=== PATIENT | female | born 1950 | race Caucasian/White ===

== ENCOUNTER → 2017-12-25 09:48 | Outpatient (CLI) | payer MEDICARE, OTHER, SELFPAY ==
[2017-12-25 12:13] LABS: Anion Gap 9 (5-15); BUN 18 mg/dL (7-18); BUN/Creat Ratio 15.7 RATIO (10-20); Chloride 101 mmol/L (98-107); Cholesterol 203 mg/dL (200); Creatinine, Serum 1.15 mg/dL (0.55-1.02); EST Glomerular Filtration Rate 50 mL/min (>60); Est Glom Filt Rate - Afr Amer 61 mL/min (>60); Glucose 102 mg/dL (74-106); High Density Lipoprotein 47 mg/dL; Potassium 4.5 mmol/L (3.5-5.1); Sodium Level 137 mmol/L (136-145); T4 Free Direct 1.11 ng/dL (0.76-1.46); Thyroid Stim Hormone (TSH) 1.29 uIU/mL (0.358-3.74); Triglycerides 196 mg/dL; Very Low Density Lipoprotein 39 mg/dL (5-40)
== END ==
PROVIDERS: Family Provider Family Medicine; PCP Family Medicine; Visit Provider Family Medicine
DX: I10 Essential (primary) hypertension (principal); E03.9 Hypothyroidism, unspecified
CPT/HCPCS: 36415; 80048; 80061; 84439; 84443

== ENCOUNTER → 2018-05-21 09:00 | Outpatient (CLI) | payer MEDICARE, OTHER, SELFPAY | PROVIDERS: Family Provider Family Medicine; PCP Family Medicine; Visit Provider Family Medicine | DX: Z00.00 Encounter for general adult medical examination without abnormal findings (principal) ==

== ENCOUNTER → 2018-05-31 08:29 | Outpatient (CLI) | payer MEDICARE, OTHER, SELFPAY | PROVIDERS: Family Provider Family Medicine; PCP Family Medicine; Visit Provider Obstetrics & Gynecology | DX: Z12.31 Encounter for screening mammogram for malignant neoplasm of breast (principal) | CPT/HCPCS: 77063; 77067 ==

== ENCOUNTER → 2018-06-12 11:55 | Outpatient (CLI) | payer MEDICARE, OTHER, SELFPAY ==
[2018-06-12 15:43] LABS: Absolute Lymphocyte Count 1.33 X10^3/ul (0.83-4.51); Absolute Neutrophil Count 3.7 X10^3/uL (2.0-7.7); Basophil# 0.03 X10^3/uL; Basophil% 0.5 % (0-1); Eosinophils% 1.8 % (0-5); Hematocrit 34.2 % (37-47); Hemoglobin 11.2 g/dl (12.0-15.0); Lymphocyte # 1.33 X10^3/ul (4.0); Lymphocyte % 23.9 % (19-41); Mean Corp Hgb Conc 32.7 g/gl (32-36); Mean Corpuscular Hgb 33.9 pg (27.0-32.0); Mean Corpuscular Volume 103.6 fL (81-99); Mean Platelet Vol. 11.1 fl (6.2-12.0); Monocyte# 0.43 X10^3/uL; Monocyte% 7.7 % (0-10); Neutrophil # 3.66 X10^3/uL (2.7-7.7); Neutrophil % 65.7 % (47-70); Platelet Count 196 K/mm3 (150-450); RBC Distribution Width CV 12.5 % (11.6-14.6); RBC Distribution Width SD 46.3 fl (35.1-43.9); White Blood Count 5.6 K/mm3 (4.4-11.0)
[2018-06-12 15:44] LABS: POSITIVE COUNT NO; POSITIVE DIFFERENTIAL NO; POSITIVE MORPHOLOGY NO
[2018-06-12 16:13] LABS: ALB/GLOB Ratio 1.2 RATIO (0.9-2.4); AST(SGOT) 20 U/L (15-37); Alanine Aminotransfer ALT/SGPT 29 U/L (13-56); Albumin, Serum 4.1 g/dL (3.2-5.0); Alkaline Phosphatase 72 U/L (45-117); Anion Gap 11 (5-15); BUN 16 mg/dL (7-18); BUN/Creat Ratio 15.5 RATIO (10-20); Calcium,Total 8.9 mg/dL (8.5-10.1); Chloride 105 mmol/L (98-107); Creatinine, Serum 1.03 mg/dL (0.55-1.02); EST Glomerular Filtration Rate 57 mL/min (>60); Est Glom Filt Rate - Afr Amer 69 mL/min (>60); Globulin 3.3 g/dL (2.2-4.2); Glucose 83 mg/dL (74-106); Potassium 4.5 mmol/L (3.5-5.1); Protein, Total 7.4 g/dL (6.4-8.2); Sodium Level 141 mmol/L (136-145); Thyroid Stim Hormone (TSH) 1.66 uIU/mL (0.358-3.74)
== END ==
PROVIDERS: Family Provider Family Medicine; PCP Family Medicine; Visit Provider Nurse Practitioner Family
DX: Z00.00 Encounter for general adult medical examination without abnormal findings (principal); I10 Essential (primary) hypertension; E03.9 Hypothyroidism, unspecified
CPT/HCPCS: 36415; 80053; 84443; 85025

== ENCOUNTER → 2018-12-19 09:52 | Outpatient (CLI) | payer MEDICARE, OTHER, SELFPAY ==
[2018-12-19 13:09] LABS: Vitamin D,25 Hydroxy 26.2 ng/mL (29.95-100.01)
[2018-12-19 13:33] LABS: Anion Gap 8 (5-15); BUN 20 mg/dL (7-18); BUN/Creat Ratio 17.1 RATIO (10-20); Chloride 101 mmol/L (98-107); Cholesterol 220 mg/dL (200); Creatinine, Serum 1.17 mg/dL (0.55-1.02); EST Glomerular Filtration Rate 49 mL/min (>60); Est Glom Filt Rate - Afr Amer 59 mL/min (>60); Glucose 106 mg/dL (74-106); High Density Lipoprotein 48 mg/dL; Potassium 4.5 mmol/L (3.5-5.1); Sodium Level 134 mmol/L (136-145); T4 Free Direct 1.02 ng/dL (0.76-1.46); Thyroid Stim Hormone (TSH) 1.88 uIU/mL (0.358-3.74); Triglycerides 286 mg/dL; Very Low Density Lipoprotein 57 mg/dL (5-40)
== END ==
PROVIDERS: Family Provider Family Medicine; PCP Family Medicine; Referring Provider Family Medicine; Visit Provider Family Medicine
DX: I10 Essential (primary) hypertension (principal); E03.9 Hypothyroidism, unspecified; M85.80 Other specified disorders of bone density and structure, unspecified site
CPT/HCPCS: 36415; 80048; 80061; 82306; 84439; 84443

== ENCOUNTER 2019-02-26 19:54 | Inpatient (IN) | payer MEDICARE, OTHER, SELFPAY ==
[2019-02-26 19:55] VITALS: BP 159/81; PULSE 74; RESP 18; TEMP 36.6; O2SAT 98; BMI 28.9
--- NOTE | 2019-02-26 20:37 | EKG12_ITS ---
Test Reason : DIZZINESS Blood Pressure : / mmHG Vent. Rate : 070 BPM Atrial Rate : 070 BPM P-R Int : 138 ms QRS Dur : 084 ms QT Int : 402 ms P-R-T Axes : 032 068 038 degrees QTc Int : 434 ms Normal sinus rhythm Normal ECG Confirmed by AICHA PEREZ ([id number]), supervising editor news reel ALESHA GIL ([id number]) on 03/03/2019 2:17:38 PM Referred By: BARRETT KULKARNI Confirmed By:AICHA PEREZ
--- NOTE | 2019-02-26 20:37 | CT_ITS ---
STUDY: CT BRAIN WITHOUT CONTRAST REASON FOR EXAM: Female, 69 years old. Dizziness RADIATION DOSAGE (If Supplied By Facility): DLP = ( 745.49 ) mGycm TECHNIQUE: Transaxial CT imaging of the brain was performed without administration of intravenous contrast material. Individualized dose optimization techniques were used for this CT. COMPARISON: None. FINDINGS: There is no acute bleed or infarct. There are chronic ischemic and atrophic changes. The ventricles are normal in configuration. There is no hydrocephalus. The visualized paranasal sinuses are clear. The mastoid air cells are well aerated. There is no skull fracture. CT/Brain/Head without Contrast IMPRESSION: No acute intracranial abnormality. Chronic ischemic and atrophic changes. Electronically Signed: Eliseo Magana, at 21:28 EDT Tel , Service support ,
--- NOTE | 2019-02-26 20:40 | ED.DCSUM_ITS ---
- ER Visit Summary Date of Service: 02/26/19 Chief Complaint: Nausea, vomiting, vertigo History of Present Illness: The patient is a 69 F presenting with nausea, vomiting, and vertigo. Patient states on Sunday she started having congestion and cough. On Sunday she felt tired and started having right ear pain. She then started having vertigo type symptoms. She complains of mild headache. She started having nausea and vomiting. She states she has vomited 6 times today. She has had subjective fever. She denies chest pain or shortness of breath. Denies abdominal pain. Denies numbness or weakness. Denies vision or speech changes. Denies other complaints. Physical Examination: Vitals are stable. Patient is afebrile. Alert no acute distress. HEENT exam is unremarkable. TMs normal. Neck is supple. Lungs are clear and equal bilaterally. Heart is regular rate and rhythm. Abdomen is soft nontender nondistended. Extremities are unremarkable. Skin is warm and dry. No focal neurologic deficit. Remainder of exam is unremarkable. Emergency Department Course and Treatment: Patient given IV fluids, Zofran, Antivert. EKG is sinus rate is 70 with no acute ischemic changes. Chest x-ray shows no acute process. CT head shows no acute process. CBC unremarkable other than hemoglobin 11.5. Chemistries show sodium 123, chloride 87, glucose 127, BUN 19. Troponin negative. Discussed with the hospitalist for admission. Disposition: Admission Impression: Vertigo, hyponatremia This note was generated with [employer]page dictation software. It may contain incorrect words, spelling, and punctuation that were not noted in review of the chart prior to signing ED Disposition - Plan for ED Patient: Referrals: Chicho Ojeda MD [Primary Care Provider] -
[2019-02-26] MEDS: 0.9% Normal Saline 1,000 ML 1000 ML IV (20:53)
[2019-02-26] MEDS: Ondansetron 4 MG/2 ML Vial IV (20:54)
[2019-02-26] MEDS: Meclizine HCl 25 MG Tablet PO (20:54)
[2019-02-26 21:07] LABS: Absolute Neutrophil Count 3.9 X10^3/uL (2.0-7.7); Eosinophil# 0.02 X10^3/uL; Eosinophils% 0.4 % (0-5); Hematocrit 32.7 % (37-47); Hemoglobin 11.5 g/dl (12.0-15.0); Lymphocyte % 16.1 % (19-41); Mean Corp Hgb Conc 35.2 g/gl (32-36); Mean Corpuscular Hgb 33.6 pg (27.0-32.0); Mean Corpuscular Volume 95.6 fL (81-99); Mean Platelet Vol. 9.8 fl (6.2-12.0); Monocyte# 0.27 X10^3/uL; Monocyte% 5.4 % (0-10); Neutrophil # 3.88 X10^3/uL (2.7-7.7); Neutrophil % 77.9 % (47-70); Platelet Count 212 K/mm3 (150-450); RBC Distribution Width CV 12.5 % (11.6-14.6); Red Blood Count 3.42 M/mm3 (4.2-5.4)
[2019-02-26 21:08] LABS: POSITIVE COUNT NO; POSITIVE DIFFERENTIAL NO; POSITIVE MORPHOLOGY NO
--- NOTE | 2019-02-26 21:10 | RAD_ITS ---
STUDY: X-RAY CHEST REASON FOR EXAM: Female, 69 years old. Fever TECHNIQUE: Frontal view of the chest COMPARISON: None. FINDINGS: The lungs are clear. There are no pleural effusions. There is no pneumothorax. The heart is normal in size. The visualized osseous structures are within normal limits. RAD/Chest 1 View (Portable) IMPRESSION: No acute thoracic pathology. Electronically Signed: Eliseo Maagna, at 22:00 EDT Tel , Service support ,
[2019-02-26 21:23] LABS: Anion Gap 6 (5-15); BUN 19 mg/dL (7-18); BUN/Creat Ratio 18.6 RATIO (10-20); Calcium,Total 9.3 mg/dL (8.5-10.1); Chloride 87 mmol/L (98-107); Creatinine, Serum 1.02 mg/dL (0.55-1.02); EST Glomerular Filtration Rate 57 mL/min (>60); Est Glom Filt Rate - Afr Amer 69 mL/min (>60); Estimated Creatinine Clearance 45.58 ml/min; Glucose 127 mg/dL (74-106); Potassium 4.2 mmol/L (3.5-5.1); Sodium Level 123 mmol/L (136-145)
[2019-02-26 22:01] VITALS: BP 153/64; PULSE 73; RESP 16; O2SAT 98
--- NOTE | 2019-02-26 23:26 | HP.PCM_ITS ---
Problem List (1) Vertigo Status: Acute (2) Viral URI Status: Acute (3) Hyponatremia Status: Acute (4) HTN (hypertension) Status: Chronic Qualifiers: Hypertension type: essential hypertension Qualified Code(s): I10 - Essential (primary) hypertension (5) Hypothyroidism Status: Chronic Qualifiers: Hypothyroidism type: unspecified Qualified Code(s): E03.9 - Hypothyroidism, unspecified History of Present Illness Date of Admission: 02/26/19 Chief Complaint: Nausea, Emesis, Vertigo, following recent URI The patient is a 69 y/o F w/ PMHx: HTN, Hypothyroidism, Chronic Normocytic An emia who presents to the [facility] ED on 02/26/19 with history of onset upper respiratory symptoms with right ear pain starting this prior Sunday with then onset vertiginous symptoms, very positional with similar vertiginous symptoms prior remotely falling illness, not improving with ongoing intractable nausea, emesis ED evaluation. Patient notes that she has had intermittent right ear issues and has followed with Dr. Graham, ENT prior. Work-up in the ED included T 97.9, heart rate 74, BP 159/81, respiratory rate 18, 90% on room air, CBC with WC 5, hemoglobin 11.5, platelet 212 with mildly increased neutrophils, BMP with sodium 123, chloride 87, BUN/creatinine 19/1.02, glucose 127, troponin less than 0.015, EKG with sinus rhythm with no acute evidence of ischemia, chest x-ray with no acute cardiopulmonary findings, CT head with no acute intracranial abnormalities with chronic ischemic and atrophic changes. In the ED patient administered normal saline, Zofran, meclizine. Patient notes notable improvement following initial meclizine regimen and antiemetic with ability to get up and use the restroom but still holding emesis bag upon evaluation. Past Medical History Past Medical History (Chronic Problems): Chronic Problems HTN (hypertension) (Chronic) Hypothyroidism (Chronic) Allergies No Known Allergies Allergy (Verified 02/26/19 19:57) Home Medications: Ambulatory Orders Medication Instructions Recorded Levothyroxine Sodium 50 mcg PO DAILY 02/26/19 Lisinopril/Hydrochlorothiazide 1 tab PO DAILY 02/26/19 [Lisinopril-Hctz 20-12.5 mg Tab] Surgical History: - - Tonsillectomy, D&C, right rotator cuff repair status post fall, bilateral tubal ligation. Psychiatric History: No pertinent psych hx BUDGET DIRECTOR History: No pertinent BUDGET DIRECTOR history Lives: Spouse/ Significant Other Smoking Status: Never smoker Tobacco Use: Non-smoker Alcohol: Occasional Drugs: None - *Family History Maternal History Items: - - Patient notes a maternal family history of hypertension, hyperlipidemia, eventual at age 94 secondary to renal failure. Paternal History Items: - - Patient notes a paternal family history of bladder cancer with tobacco use history, chronic COPD, emphysema, diabetes mitis type II which was noted to be diet-controlled. Review of Systems Constitutional: Reports: Anorexia, Malaise, Weakness, Fatigue. Denies: Chills, Fever, Weight Change HEENT: Reports: Ear Pain, Nasal Congestion, Post Nasal Drip, Sinus Congestion, Sinus Drainage, Sore Throat. Denies: Head Aches Cardiovascular: Denies: Chest Pain, Palpitations Respiratory: Reports: Cough. Denies: Shortness of breath at rest, Sputum production Gastrointestinal: Reports: Nausea, Vomiting. Denies: Abdominal Pain Genitourinary: Denies: Dysuria Musculoskeletal: Denies: Joint Pain, Joint Tenderness Skin: Denies: Rash, Wounds Neurological: Reports: - - Vertigo.. Denies: Focal weakness, Numbness, Tingling Psychiatric: Denies: Anxiety, Depression, Homicidal Ideations, Suicidal Ideations Hematologic/ Lymphatic: Denies: Easy Bruising, Easy Bleeding VTE Information - Inpt Only VTE Present on Admission: No VTE Mechan Device Prophylaxis: SCD's VTE Pharm Prophylaxis ordered?: Yes Patient Problems: Active and Suspected Problems Viral URI (Acute) Vertigo (Acute) Hyponatremia (Acute) Subjective: Seated upright in ED bed, notes feeling improved since meclizine, holding nausea and emesis bag still. Objective: Physical Examination: General: awake, alert, oriented x 3 and cooperative, seated upright in the ED bed in no apparent distress, fatigued appearance, notes improved, still holding emesis bag. Skin: normal color, turgor, no icterus, cyanosis. HEENT: AT/NC, EOMI, PERRLA, moderately dry MM, BL TM well appearing, more full R, no erythema noted BL, posterior OP erythema, post-nasal drip noted, no carotid bruits or JVD noted. Lungs: CTA bilaterally, moderate effort, mild decrease BL bases, no rales, ronchi or wheezing. Heart: Regular rate and rhythm; no gallop, rub audible. Abdomen: soft, NTTP, ND, normal BS, no HSM. Extremities: no cyanosis, clubbing, or edema. Neurological: patient awake, alert, oriented x 3; cognitive function intact; pupils equally reactive to light and accomodation; cranial nerves II-XII grossly normal, moving all 4 extremities, no focal deficits, strength severely global decrease secondary to acute presentation, vertigo was extremely positional and improving currently with no vertiginous complaints with movements during examination. Psychiatric: affect appears fatigued, no acute evidence of depressive or anxiety feelings. - Physical Exam Vital Signs Temp Pulse Resp BP Pulse Ox 97.9 F 73 16 153/64 H 98 02/26/19 19:55 02/26/19 22:01 02/26/19 22:01 02/26/19 22:01 02/26/19 22:01 Oxygen Delivery Method Room Air Weight: 168 lb 10.458 oz Body Mass Index (BMI) 28.9 Laboratory Tests Past 24 Hrs 02/26/19 02/26/19 20:45 20:45 WBC 5.0 RBC 3.42 L Hgb 11.5 L Hct 32.7 L MCV 95.6 MCH 33.6 H MCHC 35.2 RDW 12.5 RDW Differential 43.0 Plt Count 212 MPV 9.8 Immature Gran % (Auto) 0.200 Neut % (Auto) 77.9 H Lymph % (Auto) 16.1 L [place] % (Auto) 5.4 Eos % (Auto) 0.4 Baso % (Auto) 0.0 Absolute Neuts (auto) 3.9 Absolute Lymphs (auto) 0.80 L Total Counted Not Reportable Sodium 123 L Potassium 4.2 Chloride 87 L Carbon Dioxide 30.0 Anion Gap 6 BUN 19 H Creatinine 1.02 Estim Creat Clear Calc 45.58 Est GFR (MDRD) Af Amer 69 Est GFR (MDRD) Non-Af 57 L BUN/Creatinine Ratio 18.6 Glucose 127 H Calcium 9.3 Troponin I < 0.015 Assessment/Plan All Active Problems Viral URI (Acute) Vertigo (Acute) Hyponatremia (Acute) The patient is a 69 y/o F w/ PMHx: HTN, Hypothyroidism, Chronic Normocytic Anemia who presents to the [facility] ED on 02/26/19 with history of onset upper respiratory symptoms with right ear pain starting this prior Sunday with then onset vertiginous symptoms, very positional with similar vertiginous symptoms prior remotely falling illness, not improving with ongoing intractable nausea, emesis ED evaluation. (1) URI with onset vertigo, intractable: Work-up in the ED included T 97.9, heart rate 74, BP 159/81, respiratory rate 18, 90% on room air, CBC with WC 5, hemoglobin 11.5, platelet 212 with mildly increased neutrophils, BMP with sodium 123, chloride 87, BUN/creatinine 19/1.02, glucose 127, troponin less than 0.015, EKG with sinus rhythm with no acute evidence of ischemia, chest x-ray with no acute cardiopulmonary findings, CT head with no acute intracranial abnormalities with chronic ischemic and atrophic changes. Will admit to [facility], maintain on fall precautions, continue treatment with scheduled meclizine, PRN zofran, IVFs. PT/OT, CM consultation to ascertain stability and discharge needs. If ongoing intractable vertigo would then consider obtaining MRI brain. (2) Hyponatremia, acute, hypovolemic: Admission sodium 123, likely secondary to GI losses with intractable nausea and emesis following onset vertigo, will continue to hydrate, trend sodiums, would obtain TSH, FT4, FeNa, Osm if not improving but reasonable hypovolemic explanation. (3) Hyperglycemia: Admission glucose 127, likely stress response, repeat BMP in a.m. (4) Chronic normocytic anemia: Admission Hgb 11.5, similar to prior, trend. (5) Hypertension: Continue home regimen including lisinopril, holding hydrochlorothiazide given hyponatremia and acute presentation, hold agents as needed per BP parameters, PRN hydralazine. (6) Hypothyroidism: Continue home synthroid regimen. (7) DVT Prophylaxis: SCDs, lovenox. Code Visit Inpatient E&M: 45896 Init Hosp L3
[2019-02-26 23:40] VITALS: BP 145/63; PULSE 66; RESP 16; O2SAT 96
[2019-02-27 00:17] VITALS: BP 157/59; PULSE 66; RESP 16; TEMP 36.4; O2SAT 100
[2019-02-27 00:24] VITALS: BMI 29.2
[2019-02-27 00:26] VITALS: BMI 29.3
[2019-02-27 00:41] VITALS: O2SAT 98
[2019-02-27 01:02] LABS: Magnesium 1.9 mg/dL (1.6-2.6)
[2019-02-27] MEDS: 0.9% Normal Saline 1,000 ML 150 ML IV ×3 (01:07→12:49)
[2019-02-27] MEDS: Lisinopril 20 MG Tablet PO ×2 (02:30→11:09)
[2019-02-27 05:46] VITALS: BP 134/55; PULSE 71; RESP 18; TEMP 36.7; O2SAT 98
[2019-02-27] MEDS: Levothyroxine 50 MCG Tablet PO (05:48)
[2019-02-27] MEDS: Meclizine 12.5 MG Tablet PO ×2 (05:48→15:44)
[2019-02-27 06:47] LABS: Absolute Lymphocyte Count 1.46 X10^3/ul (0.83-4.51); Absolute Neutrophil Count 3.5 X10^3/uL (2.0-7.7); Basophil# 0.01 X10^3/uL; Basophil% 0.2 % (0-1); Eosinophil# 0.05 X10^3/uL; Eosinophils% 0.9 % (0-5); Hematocrit 31.2 % (37-47); Hemoglobin 10.8 g/dl (12.0-15.0); Lymphocyte # 1.46 X10^3/ul (4.0); Lymphocyte % 26.1 % (19-41); Mean Corp Hgb Conc 34.6 g/gl (32-36); Mean Corpuscular Hgb 33.2 pg (27.0-32.0); Mean Platelet Vol. 9.8 fl (6.2-12.0); Monocyte# 0.54 X10^3/uL; Monocyte% 9.6 % (0-10); Neutrophil # 3.53 X10^3/uL (2.7-7.7); Platelet Count 204 K/mm3 (150-450); Red Blood Count 3.25 M/mm3 (4.2-5.4); White Blood Count 5.6 K/mm3 (4.4-11.0)
[2019-02-27 06:50] LABS: POSITIVE COUNT NO; POSITIVE DIFFERENTIAL NO; POSITIVE MORPHOLOGY NO
[2019-02-27 06:58] LABS: Anion Gap 9 (5-15); BUN 14 mg/dL (7-18); Calcium,Total 8.7 mg/dL (8.5-10.1); Chloride 94 mmol/L (98-107); EST Glomerular Filtration Rate 59 mL/min (>60); Est Glom Filt Rate - Afr Amer 71 mL/min (>60); Glucose 86 mg/dL (74-106); Sodium Level 130 mmol/L (136-145)
[2019-02-27 07:50] VITALS: O2SAT 98
[2019-02-27 11:07] VITALS: BP 138/53; PULSE 75; RESP 18; TEMP 36.7; O2SAT 99
[2019-02-27] MEDS: Enoxaparin 40 MG/0.4 ML Syringe SC (11:09)
--- NOTE | 2019-02-27 13:25 | CASEMGMT ---
JOHN ALCANTAR assessment: Face to Face with patient for initial transition planning/care coordination assessment. JOHN ALCANTAR introduced self and role at [facility], pt voices understanding and consents to assessment at this time. Pt is lying in bed in no distress at this time. Pt is A/Ox4 at this time and answers all questions appropriately at this time. Care providers, pharmacy, and demographics verified at this time. PCP: Rusty Specialists: Pt states currently has no specialists. Preferred Pharmacy: [facility] Insurance: MCR A/B, MMO Prescription Benefit: [employer] Living Will/HPOA: Pt states has a LW/HPOA but they are not currently on file at [facility] at this time. Pt states that her , Carlos Stallworth, is HPOA. LNOK: Carlos Stallworth, ; Carleen Saini, daughter Living Arrangements: Pt states lives with in a 2 story home with no concerns at home at this time. Transportation: Pt states drives self and states no transportation concerns at this time. DME/HHC: Pt states has a BP cuff at home but rarely uses. Pt states no need for any further DME. Pt states no hx of HHC or SNF in the past. Pt states no concerns with going home at time of discharge. Pt states is retired. Pt states does not smoke but does drink ETOH occasionally. Pt states no further concerns/needs at this time. CM to follow for any further discharge planning/needs. Advised pt to ask for CM if any further questions/concerns/needs arise, voices understanding. Pt Goal: Home [place] JOHN ALCANTAR
--- NOTE | 2019-02-27 13:40 | DCINST_ITS ---
- Discharge Diagnoses Current Active Problems: Current Active and Chronic Problems Viral URI (Acute) Vertigo (Acute) HTN (hypertension) (Chronic) Hypothyroidism (Chronic) Hyponatremia (Acute) You will use the following diet at home:: No restrictions Discharge Activity: Return to Normal Activity Call your doctor if you observe: Shortness of breath, Dizziness, Fainting spells, Chest pain Allergies/Adverse Reactions: Allergies No Known Allergies Allergy (Verified 02/27/19 00:46) Medications to take at Discharge Levothyroxine Sodium 50 mcg PO DAILY 02/26/19 Lisinopril/Hydrochlorothiazide [Lisinopril-Hctz 20-12.5 mg Tab] 1 tab PO BID 02/26/19 Meclizine HCl [Antivert] 12.5 mg PO 4X/DAY PRN PRN #30 tablet 02/27/19 The following prescriptions were given: Meclizine HCl [Antivert] 12.5 mg PO 4X/DAY PRN PRN #30 tablet PRN Reason: Vertigo Primary Care Physician: Chicho Ojeda MD [Primary Care Provider] - Please follow up with your Primary Care Physician in: Within 1 Week Test Results: Test results from this visit will be discussed in further detail at your follow- up appointment, if applicable. Proposed Discharge Date: 02/27/19
--- NOTE | 2019-02-27 13:40 | PCM.DC.SUM ---
<Linda Lovell - Last Filed: 02/27/19 13:55> Discharge Date and Diagnosis Date of Admission: 02/26/19 Date of Discharge: 02/27/19 - Primary Discharge Diagnosis Active and Suspected Problems 1. Acute vertigo 2. Recent viral URI 3. Acute hypovolemic hyponatremia secondary to intractable nausea and vomiting as a result of #1 4. Chronic normocytic anemia 5. Hypertension 6. Hypothyroidism - Secondary Discharge Diagnosis Chronic Problems HTN (hypertension) (Chronic) Hypothyroidism (Chronic) Hospital Course and Treatment Imaging Results: Diagnostic Data Brain CT 02/26/19 20:37 IMPRESSION: No acute intracranial abnormality. Chronic ischemic and atrophic changes. Electronically Signed: Eliseo Magana, at 21:28 EDT Tel , Service support , Chest X-Ray 02/26/19 21:10 IMPRESSION: No acute thoracic pathology. Electronically Signed: Eliseo Magana, at 22:00 EDT Tel , Service support , Operations: None Procedures: None Summary of Care Provided: The patient is a 69 year old F admitted 02/26/2019 due to nausea, emesis, vertigo. 1. Acute vertigo-suspect secondary to recent viral URI. Patient reports history of vertigo with URI/otitis media. Symptoms resolved with meclizine regimen. Brain CT without acute process. Discharged with meclizine as needed. Follow-up with primary care physician in 1 week. If recurrent vertigo, recommend follow-up with ENT. 2. Recent viral URI-resolved. Chest x-ray without acute process. 3. Acute hypovolemic hyponatremia secondary to intractable nausea and vomiting as a result of #1. Sodium improved. Nausea, vomiting resolved. 4. Chronic normocytic anemia-stable. 5. Hypertension-stable, continue home HCTZ/lisinopril regimen. 6. Hypothyroidism-continue home Synthroid regimen. Patient seen and examined prior to discharge. Physical assessment as noted below. Patient is stable for discharge with follow up recommendations as noted above. This patient was seen by GORDON Soto under the supervision of Dr. Butterfield. - Physical Exam Vital Signs Temp Pulse Resp BP Pulse Ox 98.1 F 75 18 138/53 H 99 02/27/19 11:07 02/27/19 11:07 02/27/19 11:07 02/27/19 11:07 02/27/19 11:07 Oxygen Delivery Method Room Air Weight: 170 lb 6.677 oz Body Mass Index (BMI) 29.2 Intake and Output for Last 24 Hours 02/25/19 02/26/19 02/27/19 23:59 23:59 23:59 Intake Total 1218 / 1218 Output Total 2200 / 2200 Balance -982 / -982 Laboratory Tests Past 24 Hrs 02/26/19 02/26/19 02/26/19 20:45 20:45 20:45 WBC 5.0 RBC 3.42 L Hgb 11.5 L Hct 32.7 L MCV 95.6 MCH 33.6 H MCHC 35.2 RDW 12.5 RDW Differential 43.0 Plt Count 212 MPV 9.8 Immature Gran % (Auto) 0.200 Neut % (Auto) 77.9 H Lymph % (Auto) 16.1 L [place] % (Auto) 5.4 Eos % (Auto) 0.4 Baso % (Auto) 0.0 Absolute Neuts (auto) 3.9 Absolute Lymphs (auto) 0.80 L Total Counted Not Reportable Sodium 123 L Potassium 4.2 Chloride 87 L Carbon Dioxide 30.0 Anion Gap 6 BUN 19 H Creatinine 1.02 Estim Creat Clear Calc 45.58 Est GFR (MDRD) Af Amer 69 Est GFR (MDRD) Non-Af 57 L BUN/Creatinine Ratio 18.6 Glucose 127 H Calcium 9.3 Magnesium 1.9 Troponin I < 0.015 02/27/19 02/27/19 06:00 06:00 WBC 5.6 RBC 3.25 L Hgb 10.8 L Hct 31.2 L MCV 96.0 MCH 33.2 H MCHC 34.6 RDW 12.0 RDW Differential 41.0 Plt Count 204 MPV 9.8 Immature Gran % (Auto) 0.200 Neut % (Auto) 63.0 Lymph % (Auto) 26.1 [place] % (Auto) 9.6 Eos % (Auto) 0.9 Baso % (Auto) 0.2 Absolute Neuts (auto) 3.5 Absolute Lymphs (auto) 1.46 Total Counted Not Reportable Sodium 130 L Potassium 4.0 Chloride 94 L Carbon Dioxide 27.0 Anion Gap 9 BUN 14 Creatinine 1.00 Estim Creat Clear Calc 46.50 Est GFR (MDRD) Af Amer 71 Est GFR (MDRD) Non-Af 59 L BUN/Creatinine Ratio 14.0 Glucose 86 Calcium 8.7 Magnesium Troponin I Discharge Diet: No Restrictions Discharge Activity: Return to Normal Activity Call your doctor if you observe: Shortness of breath, Dizziness, Fainting spells, Chest pain Home Medications: Medications to take at Discharge Levothyroxine Sodium 50 mcg PO DAILY 02/26/19 Lisinopril/Hydrochlorothiazide [Lisinopril-Hctz 20-12.5 mg Tab] 1 tab PO BID 02/26/19 Meclizine HCl [Antivert] 12.5 mg PO 4X/DAY PRN PRN #30 tablet 02/27/19 Following Prescrptions Were Given to Patient: Meclizine HCl [Antivert] 12.5 mg PO 4X/DAY PRN PRN #30 tablet PRN Reason: Vertigo Primary Care Physician: Chicho Ojeda MD [Primary Care Provider] - Please follow up with your Primary Care Physician in: Within 1 Week Disposition: Home Minutes spent on discharge:: 35 Patient Condition:: Stable Medical Necessity - Tobacco Use Smoking Status: Never smoker Tobacco Use: Non-smoker Meaningful Use Info Meaningful Use Diagnoses (Choose all that apply): None applicable <Kaden Butterfield - Last Filed: 02/27/19 15:09> Discharge Date and Diagnosis - Secondary Discharge Diagnosis Chronic Problems HTN (hypertension) (Chronic) Hypothyroidism (Chronic) Hospital Course and Treatment Summary of Care Provided: This patient was seen in conjunction with GLUERLinda. I have independently interviewed and examined the patient and reviewed pertinent history, examination findings, laboratory and plan of management. I have reviewed the note and agree with the documented findings with the few additional points. In brief, patient is admitted for acute vertigo mostly secondary to viral URI probably vestibular neuronitis/otitis media. She was symptomatically managed with Antivert. CT brain was negative. Discharged on meclizine and follow-up with PCP. Contact PT and OT done. Discharge medication reconciliation done. Discharge follow-up instructions completed. Discharge process discussed with the patient and all questions were answered to patient's satisfaction. I have discussed my assessment with GLUERLinda and orders have been reviewed. [] Subjective: Seen and examined. Patient had flulike illness/URI about 2 3 3 days ago. Denies any chronic ear problems/vestibular or inner ear lesion or stroke. She had dizziness and vertigo but denies tinnitus. Her dizziness and vertigo has resolved. Currently she is asymptomatic. Her nausea and vomiting has also resolved. - Physical Exam General: Alert, Oriented x3, Cooperative HEENT: Atraumatic, PERRLA, EOMI, Normocephalic Neck: Supple, No JVD, Negative Carotid Bruits Lungs: Clear to auscultation, Normal air movement, No rhonchi, No wheeze, No rales Cardiovascular: Regular rate, Regular Rhythm, Normal S1, Normal S2, No murmurs Abdomen: Bowel Sounds Present, Soft, Non Tender Extremities: No edema, Capillary Refill Less than 3 Seconds Skin: No rashes, No breakdown Musculoskeletal: No Tenderness to Palpation of Joints or Extremities, Arthritic Changes Lymphatic: No Cervical, Supraclavicular, or Inguinal Adenopathy Neurological: Cranial nerves II-XII grossly intact, Deep Tendon Reflexes 2+/4 and Symmetrical, Neuro grossly intact Psych/Mental Status: Normal Affect, Appropriate Vital Signs Temp Pulse Resp BP Pulse Ox 98.1 F 75 18 138/53 H 99 02/27/19 11:07 02/27/19 11:07 02/27/19 11:07 02/27/19 11:07 02/27/19 11:07 Oxygen Delivery Method Room Air Weight: 170 lb 6.677 oz Body Mass Index (BMI) 29.2 Intake and Output for Last 24 Hours 02/25/19 02/26/19 02/27/19 23:59 23:59 23:59 Intake Total 1218 / 1218 Output Total 2200 / 2200 Balance -982 / -982 Laboratory Tests Past 24 Hrs 02/26/19 02/26/19 02/26/19 20:45 20:45 20:45 WBC 5.0 RBC 3.42 L Hgb 11.5 L Hct 32.7 L MCV 95.6 MCH 33.6 H MCHC 35.2 RDW 12.5 RDW Differential 43.0 Plt Count 212 MPV 9.8 Immature Gran % (Auto) 0.200 Neut % (Auto) 77.9 H Lymph % (Auto) 16.1 L [place] % (Auto) 5.4 Eos % (Auto) 0.4 Baso % (Auto) 0.0 Absolute Neuts (auto) 3.9 Absolute Lymphs (auto) 0.80 L Total Counted Not Reportable Sodium 123 L Potassium 4.2 Chloride 87 L Carbon Dioxide 30.0 Anion Gap 6 BUN 19 H Creatinine 1.02 Estim Creat Clear Calc 45.58 Est GFR (MDRD) Af Amer 69 Est GFR (MDRD) Non-Af 57 L BUN/Creatinine Ratio 18.6 Glucose 127 H Calcium 9.3 Magnesium 1.9 Troponin I < 0.015 02/27/19 02/27/19 06:00 06:00 WBC 5.6 RBC 3.25 L Hgb 10.8 L Hct 31.2 L MCV 96.0 MCH 33.2 H MCHC 34.6 RDW 12.0 RDW Differential 41.0 Plt Count 204 MPV 9.8 Immature Gran % (Auto) 0.200 Neut % (Auto) 63.0 Lymph % (Auto) 26.1 [place] % (Auto) 9.6 Eos % (Auto) 0.9 Baso % (Auto) 0.2 Absolute Neuts (auto) 3.5 Absolute Lymphs (auto) 1.46 Total Counted Not Reportable Sodium 130 L Potassium 4.0 Chloride 94 L Carbon Dioxide 27.0 Anion Gap 9 BUN 14 Creatinine 1.00 Estim Creat Clear Calc 46.50 Est GFR (MDRD) Af Amer 71 Est GFR (MDRD) Non-Af 59 L BUN/Creatinine Ratio 14.0 Glucose 86 Calcium 8.7 Magnesium Troponin I Code Visit OBSV E&M: [id number] Observation care discharge
--- NOTE | 2019-02-27 13:54 | DS.PCM_ITS ---
<Linda Lovell - Last Filed: 02/27/19 13:55> Discharge Date and Diagnosis Date of Admission: 02/26/19 Date of Discharge: 02/27/19 - Primary Discharge Diagnosis Active and Suspected Problems 1. Acute vertigo 2. Recent viral URI 3. Acute hypovolemic hyponatremia secondary to intractable nausea and vomiting as a result of #1 4. Chronic normocytic anemia 5. Hypertension 6. Hypothyroidism - Secondary Discharge Diagnosis Chronic Problems HTN (hypertension) (Chronic) Hypothyroidism (Chronic) Hospital Course and Treatment Imaging Results: Diagnostic Data Brain CT 02/26/19 20:37 IMPRESSION: No acute intracranial abnormality. Chronic ischemic and atrophic changes. Electronically Signed: Eliseo Magana, at 21:28 EDT Tel , Service support , Chest X-Ray 02/26/19 21:10 IMPRESSION: No acute thoracic pathology. Electronically Signed: Eliseo Magana, at 22:00 EDT Tel , Service support , Operations: None Procedures: None Summary of Care Provided: The patient is a 69 year old F admitted 02/26/2019 due to nausea, emesis, vertigo. 1. Acute vertigo-suspect secondary to recent viral URI. Patient reports history of vertigo with URI/otitis media. Symptoms resolved with meclizine regimen. Brain CT without acute process. Discharged with meclizine as needed. Follow-up with primary care physician in 1 week. If recurrent vertigo, recommend follow-up with ENT. 2. Recent viral URI-resolved. Chest x-ray without acute process. 3. Acute hypovolemic hyponatremia secondary to intractable nausea and vomiting as a result of #1. Sodium improved. Nausea, vomiting resolved. 4. Chronic normocytic anemia-stable. 5. Hypertension-stable, continue home HCTZ/lisinopril regimen. 6. Hypothyroidism-continue home Synthroid regimen. Patient seen and examined prior to discharge. Physical assessment as noted below. Patient is stable for discharge with follow up recommendations as noted above. This patient was seen by GORDON Soto under the supervision of Dr. Butterfield. - Physical Exam Vital Signs Temp Pulse Resp BP Pulse Ox 98.1 F 75 18 138/53 H 99 02/27/19 11:07 02/27/19 11:07 02/27/19 11:07 02/27/19 11:07 02/27/19 11:07 Oxygen Delivery Method Room Air Weight: 170 lb 6.677 oz Body Mass Index (BMI) 29.2 Intake and Output for Last 24 Hours 02/25/19 02/26/19 02/27/19 23:59 23:59 23:59 Intake Total 1218 / 1218 Output Total 2200 / 2200 Balance -982 / -982 Laboratory Tests Past 24 Hrs 02/26/19 02/26/19 02/26/19 20:45 20:45 20:45 WBC 5.0 RBC 3.42 L Hgb 11.5 L Hct 32.7 L MCV 95.6 MCH 33.6 H MCHC 35.2 RDW 12.5 RDW Differential 43.0 Plt Count 212 MPV 9.8 Immature Gran % (Auto) 0.200 Neut % (Auto) 77.9 H Lymph % (Auto) 16.1 L [place] % (Auto) 5.4 Eos % (Auto) 0.4 Baso % (Auto) 0.0 Absolute Neuts (auto) 3.9 Absolute Lymphs (auto) 0.80 L Total Counted Not Reportable Sodium 123 L Potassium 4.2 Chloride 87 L Carbon Dioxide 30.0 Anion Gap 6 BUN 19 H Creatinine 1.02 Estim Creat Clear Calc 45.58 Est GFR (MDRD) Af Amer 69 Est GFR (MDRD) Non-Af 57 L BUN/Creatinine Ratio 18.6 Glucose 127 H Calcium 9.3 Magnesium 1.9 Troponin I < 0.015 02/27/19 02/27/19 06:00 06:00 WBC 5.6 RBC 3.25 L Hgb 10.8 L Hct 31.2 L MCV 96.0 MCH 33.2 H MCHC 34.6 RDW 12.0 RDW Differential 41.0 Plt Count 204 MPV 9.8 Immature Gran % (Auto) 0.200 Neut % (Auto) 63.0 Lymph % (Auto) 26.1 [place] % (Auto) 9.6 Eos % (Auto) 0.9 Baso % (Auto) 0.2 Absolute Neuts (auto) 3.5 Absolute Lymphs (auto) 1.46 Total Counted Not Reportable Sodium 130 L Potassium 4.0 Chloride 94 L Carbon Dioxide 27.0 Anion Gap 9 BUN 14 Creatinine 1.00 Estim Creat Clear Calc 46.50 Est GFR (MDRD) Af Amer 71 Est GFR (MDRD) Non-Af 59 L BUN/Creatinine Ratio 14.0 Glucose 86 Calcium 8.7 Magnesium Troponin I Discharge Diet: No Restrictions Discharge Activity: Return to Normal Activity Call your doctor if you observe: Shortness of breath, Dizziness, Fainting spells, Chest pain Home Medications: Medications to take at Discharge Levothyroxine Sodium 50 mcg PO DAILY 02/26/19 Lisinopril/Hydrochlorothiazide [Lisinopril-Hctz 20-12.5 mg Tab] 1 tab PO BID 02/26/19 Meclizine HCl [Antivert] 12.5 mg PO 4X/DAY PRN PRN #30 tablet 02/27/19 Following Prescrptions Were Given to Patient: Meclizine HCl [Antivert] 12.5 mg PO 4X/DAY PRN PRN #30 tablet PRN Reason: Vertigo Primary Care Physician: Chicho Ojeda MD [Primary Care Provider] - Please follow up with your Primary Care Physician in: Within 1 Week Disposition: Home Minutes spent on discharge:: 35 Patient Condition:: Stable Medical Necessity - Tobacco Use Smoking Status: Never smoker Tobacco Use: Non-smoker Meaningful Use Info Meaningful Use Diagnoses (Choose all that apply): None applicable <Kaden Butterfield - Last Filed: 02/27/19 15:09> Discharge Date and Diagnosis - Secondary Discharge Diagnosis Chronic Problems HTN (hypertension) (Chronic) Hypothyroidism (Chronic) Hospital Course and Treatment Summary of Care Provided: This patient was seen in conjunction with DRIER UNLOADERLinda. I have independently interviewed and examined the patient and reviewed pertinent history, examination findings, laboratory and plan of management. I have reviewed the note and agree with the documented findings with the few additional points. In brief, patient is admitted for acute vertigo mostly secondary to viral URI probably vestibular neuronitis/otitis media. She was symptomatically managed with Antivert. CT brain was negative. Discharged on meclizine and follow-up with PCP. Contact PT and OT done. Discharge medication reconciliation done. Discharge follow-up instructions completed. Discharge process discussed with the patient and all questions were answered to patient's satisfaction. I have discussed my assessment with DRIER UNLOADERLinda and orders have been reviewed. [] Subjective: Seen and examined. Patient had flulike illness/URI about 2 3 3 days ago. Denies any chronic ear problems/vestibular or inner ear lesion or stroke. She had dizziness and vertigo but denies tinnitus. Her dizziness and vertigo has resolved. Currently she is asymptomatic. Her nausea and vomiting has also resolved. - Physical Exam General: Alert, Oriented x3, Cooperative HEENT: Atraumatic, PERRLA, EOMI, Normocephalic Neck: Supple, No JVD, Negative Carotid Bruits Lungs: Clear to auscultation, Normal air movement, No rhonchi, No wheeze, No rales Cardiovascular: Regular rate, Regular Rhythm, Normal S1, Normal S2, No murmurs Abdomen: Bowel Sounds Present, Soft, Non Tender Extremities: No edema, Capillary Refill Less than 3 Seconds Skin: No rashes, No breakdown Musculoskeletal: No Tenderness to Palpation of Joints or Extremities, Arthritic Changes Lymphatic: No Cervical, Supraclavicular, or Inguinal Adenopathy Neurological: Cranial nerves II-XII grossly intact, Deep Tendon Reflexes 2+/4 and Symmetrical, Neuro grossly intact Psych/Mental Status: Normal Affect, Appropriate Vital Signs Temp Pulse Resp BP Pulse Ox 98.1 F 75 18 138/53 H 99 02/27/19 11:07 02/27/19 11:07 02/27/19 11:07 02/27/19 11:07 02/27/19 11:07 Oxygen Delivery Method Room Air Weight: 170 lb 6.677 oz Body Mass Index (BMI) 29.2 Intake and Output for Last 24 Hours 02/25/19 02/26/19 02/27/19 23:59 23:59 23:59 Intake Total 1218 / 1218 Output Total 2200 / 2200 Balance -982 / -982 Laboratory Tests Past 24 Hrs 02/26/19 02/26/19 02/26/19 20:45 20:45 20:45 WBC 5.0 RBC 3.42 L Hgb 11.5 L Hct 32.7 L MCV 95.6 MCH 33.6 H MCHC 35.2 RDW 12.5 RDW Differential 43.0 Plt Count 212 MPV 9.8 Immature Gran % (Auto) 0.200 Neut % (Auto) 77.9 H Lymph % (Auto) 16.1 L [place] % (Auto) 5.4 Eos % (Auto) 0.4 Baso % (Auto) 0.0 Absolute Neuts (auto) 3.9 Absolute Lymphs (auto) 0.80 L Total Counted Not Reportable Sodium 123 L Potassium 4.2 Chloride 87 L Carbon Dioxide 30.0 Anion Gap 6 BUN 19 H Creatinine 1.02 Estim Creat Clear Calc 45.58 Est GFR (MDRD) Af Amer 69 Est GFR (MDRD) Non-Af 57 L BUN/Creatinine Ratio 18.6 Glucose 127 H Calcium 9.3 Magnesium 1.9 Troponin I < 0.015 02/27/19 02/27/19 06:00 06:00 WBC 5.6 RBC 3.25 L Hgb 10.8 L Hct 31.2 L MCV 96.0 MCH 33.2 H MCHC 34.6 RDW 12.0 RDW Differential 41.0 Plt Count 204 MPV 9.8 Immature Gran % (Auto) 0.200 Neut % (Auto) 63.0 Lymph % (Auto) 26.1 [place] % (Auto) 9.6 Eos % (Auto) 0.9 Baso % (Auto) 0.2 Absolute Neuts (auto) 3.5 Absolute Lymphs (auto) 1.46 Total Counted Not Reportable Sodium 130 L Potassium 4.0 Chloride 94 L Carbon Dioxide 27.0 Anion Gap 9 BUN 14 Creatinine 1.00 Estim Creat Clear Calc 46.50 Est GFR (MDRD) Af Amer 71 Est GFR (MDRD) Non-Af 59 L BUN/Creatinine Ratio 14.0 Glucose 86 Calcium 8.7 Magnesium Troponin I Code Visit OBSV E&M: 86127 Observation care discharge
[2019-02-27 15:42] VITALS: BP 118/48; PULSE 79; RESP 18; TEMP 36.8; O2SAT 99
== END 2019-02-27 17:11 | disposition home or self-care (01) | DRG 149 ==
LOC: ED 20:52 → PCU 02-27
PROVIDERS: Admitting Provider Family Medicine; Emergency Provider Emergency Medicine; Family Provider Family Medicine; PCP Family Medicine; Visit Provider Internal Medicine
DX: R42 Dizziness and giddiness (principal); E87.1 Hypo-osmolality and hyponatremia; I10 Essential (primary) hypertension; E03.9 Hypothyroidism, unspecified; D64.9 Anemia, unspecified; E86.1 Hypovolemia; Z87.09 Personal history of other diseases of the respiratory system
CPT/HCPCS: 36415; 70450; 71045; 80048; 83735; 84484; 85025; 93005; 97161; 97166; 99285; J7030; J2405

== ENCOUNTER → 2019-03-05 11:37 | Outpatient (CLI) | payer MEDICARE, OTHER, SELFPAY ==
[2019-02-27 00:24] VITALS: BMI 29.2
[2019-03-05 14:29] LABS: Absolute Lymphocyte Count 1.11 X10^3/ul (0.83-4.51); Absolute Neutrophil Count 4.2 X10^3/uL (2.0-7.7); Basophil# 0.02 X10^3/uL; Basophil% 0.3 % (0-1); Eosinophil# 0.13 X10^3/uL; Eosinophils% 2.1 % (0-5); Hematocrit 34.2 % (37-47); Hemoglobin 11.5 g/dl (12.0-15.0); Lymphocyte # 1.11 X10^3/ul (4.0); Lymphocyte % 18.2 % (19-41); Mean Corp Hgb Conc 33.6 g/gl (32-36); Mean Corpuscular Hgb 33.6 pg (27.0-32.0); Mean Platelet Vol. 10.5 fl (6.2-12.0); Monocyte# 0.65 X10^3/uL; Monocyte% 10.7 % (0-10); Neutrophil # 4.17 X10^3/uL (2.7-7.7); Neutrophil % 68.4 % (47-70); Platelet Count 262 K/mm3 (150-450); RBC Distribution Width CV 12.7 % (11.6-14.6); RBC Distribution Width SD 44.7 fl (35.1-43.9); Red Blood Count 3.42 M/mm3 (4.2-5.4); White Blood Count 6.1 K/mm3 (4.4-11.0)
[2019-03-05 14:30] LABS: POSITIVE COUNT NO; POSITIVE DIFFERENTIAL NO; POSITIVE MORPHOLOGY NO
[2019-03-05 14:56] LABS: Anion Gap 7 (5-15); BUN 22 mg/dL (7-18); BUN/Creat Ratio 19.8 RATIO (10-20); Calcium,Total 9.5 mg/dL (8.5-10.1); Chloride 101 mmol/L (98-107); Creatinine, Serum 1.11 mg/dL (0.55-1.02); EST Glomerular Filtration Rate 52 mL/min (>60); Est Glom Filt Rate - Afr Amer 63 mL/min (>60); Glucose 89 mg/dL (74-106); Potassium 4.3 mmol/L (3.5-5.1); Sodium Level 134 mmol/L (136-145)
== END ==
PROVIDERS: Family Provider Family Medicine; PCP Family Medicine; Referring Provider Family Medicine; Visit Provider Nurse Practitioner Family
DX: I10 Essential (primary) hypertension (principal)
CPT/HCPCS: 36415; 80048; 85025

== ENCOUNTER 2019-04-13 10:58 | Observation (INO) | payer MEDICARE, OTHER, SELFPAY ==
[2019-04-13] VITALS (10 sets, daily range): BP systolic 131–171; BP diastolic 64–77; PULSE 65–92; RESP 16–18; TEMP 36.5–37.4; O2SAT 94–99; BMI 28.3; BMI 29.4
--- NOTE | 2019-04-13 11:04 | EKG12_ITS ---
Test Reason : DIZZINESS Blood Pressure : / mmHG Vent. Rate : 065 BPM Atrial Rate : 065 BPM P-R Int : 148 ms QRS Dur : 082 ms QT Int : 404 ms P-R-T Axes : 064 058 039 degrees QTc Int : 420 ms Normal sinus rhythm Normal ECG Confirmed by AICHA PEREZ ([id number]), supervising editor trailer ALLIE REDD ([id number]) on 04/16/2019 1:46:31 PM Referred By: LUKE Confirmed By:AICHA PEREZ
--- NOTE | 2019-04-13 11:07 | RAD_ITS ---
STUDY: X-RAY CHEST REASON FOR EXAM: Female, 69 years old. TECHNIQUE: 1 view COMPARISON: February 26, 2019. FINDINGS: The lungs are clear and expanded. There is no demonstrated pleural abnormality. Normal size heart. Normal mediastinum and anamaria. Normal visualized pulmonary arteries. Normal visualized aortic arch and descending thoracic aorta. Normal visualized thoracic spine. Normal visualized ribs, clavicles, and shoulders. There is no demonstrated abnormality of the visualized soft tissue structures of the upper abdomen. RAD/Chest 1 View (Portable) IMPRESSION: Normal x-ray examination of the chest unchanged since February 26, 2019. Electronically Signed: Mikey eHrnandez, at 11:25 EDT Tel , Service support ,
--- NOTE | 2019-04-13 11:40 | ED.VIS.GEN ---
History of Present Illness Chief Complaint: Dizziness Informant: Patient, Family Onset: Days Current Severity: Mild Narrative: Patient indicates she is having recurrence of her vertigo condition where she has spinning sensation, she was admitted about a week ago for this process had an extensive evaluation including lab tests CT scans MRI by her history all the above unremarkable, she was sent home on meclizine to use as needed and follow-up. She did well in the last few days had intermittent vertigo and now the vertigo was persistent despite the use of the meclizine she has no headache no numbness weakness paresthesias she has no cardiovascular history and the exact etiology of why she initially developed this condition was unclear, she indicates she is having almost identical symptoms she is had no fever no chest or abdominal pain bowel bladder habits have been normal Past Medical History - Allergies and Home Meds Allergies/Adverse Reactions: Allergies No Known Allergies Allergy (Verified 02/27/19 00:46) Primary Care Physician: Chicho Ojeda MD [Primary Care Provider] - Past Medical History: - - See above Surgical History: - - Tonsillectomy, D&C, right rotator cuff repair status post fall, bilateral tubal ligation. Smoking Status: Never smoker - Family History Maternal Family History: Reports: - - Patient notes a maternal family history of hypertension, hyperlipidemia, eventual at age 94 secondary to renal failure. Paternal Family History: Reports: - - Patient notes a paternal family history of bladder cancer with tobacco use history, chronic COPD, emphysema, diabetes mitis type II which was noted to be diet-controlled. Review of Systems General: Denies: Chills, Fever, Sweats Eyes: Denies: Visual changes - bilaterally, Diplopia ENT: Denies: Rhinorrhea, Sore throat Cardiovascular: Denies: Chest pain, Palpitations Respiratory: Denies: Dyspnea, Cough, Dyspnea on exertion Gastrointestinal: Denies: Abdominal pain, Nausea, Vomiting, Diarrhea, Melena, Hematochezia Genitourinary: Denies: Dysuria, Hematuria, Frequency Musculoskeletal: Denies: Back pain, Extremity Pain Skin: Denies: Rash, Wounds Neurological: Reports: - - Just a spinning sensation. Denies: Headache, Weakness, Numbness Physical Exam Vital Signs/Narrative: Vital Signs Temp Pulse Resp BP Pulse Ox 04/13/19 11:00 97.7 F L 72 18 159/66 H 97 General: Well nourished, Well developed, No Acute Distress Head: Normocephalic, Atraumatic Eyes: Perrl, EOMI ENT: Moist mucous membranes, No rhinorrhea Neck: Supple, Nontender Cardiovascular: Regular rate, Regular rhythm, No murmurs Respiratory: No distress, CTA bilaterally, Chest nontender Abdomen: Soft, Nontender, Nondistended, Normal bowel sounds Back: Nontender, Normal Inspection Extremities: Nontender, No edema Skin: Normal color, No rash Neurological: Alert, Oriented x3, Cranial nerves II-XII grossly intact, Normal Strength, Normal Sensation Psychological: Normal affect, Normal Mood Diagnostic/Tx/Re-eval - Medical Decision Making The patient's neurologic exam is unremarkable her NIH is 0 I cannot reproduce her vertigo sensation with head movement her eyes are unremarkable without nystagmus her physical exam is normal I had a long conversation with the patient her she does not wish to undergo any further imaging and she indicates that extensive imaging the past she simply wants some relief of the nausea and the spinning sensation she would actually to go home, At this time screening labs are obtained she medicated with Ativan IV fluids and will reevaluate Patient screening labs are all generally unremarkable except her sodium is 122 she was reports, she is feeling better, but does not feel well enough to be discharged home initially we were considering trying her home trial of Ativan as it helped, she indicates the only other time she had a low sodium was when she had protracted vomiting with the vertigo week ago, at this time we will IV fluids and have asked the hospitalist for further management and admission Admit stable Final impression Persistent vertigo, hyponatremia ED Disposition - Plan for ED Patient: Diagnosis: Vertigo Instructions: DIZZINESS, Unk Cause Prescriptions: Lorazepam [Ativan] 0.5 mg PO TID #7 tab Prescription Printed Referrals: Chicho Ojeda MD [Primary Care Provider] -
[2019-04-13] MEDS: LORazepam 2 MG/ML Syringe 1 MG IV (11:47)
[2019-04-13 11:51] LABS: Absolute Lymphocyte Count 1.62 X10^3/ul (0.83-4.51); Absolute Neutrophil Count 6.8 X10^3/uL (2.0-7.7); Basophil# 0.01 X10^3/uL; Basophil% 0.1 % (0-1); Eosinophil# 0.04 X10^3/uL; Eosinophils% 0.4 % (0-5); Hematocrit 32.6 % (37-47); Hemoglobin 11.4 g/dl (12.0-15.0); Lymphocyte # 1.62 X10^3/ul (4.0); Lymphocyte % 16.9 % (19-41); Mean Corpuscular Hgb 33.4 pg (27.0-32.0); Mean Corpuscular Volume 95.6 fL (81-99); Mean Platelet Vol. 9.7 fl (6.2-12.0); Monocyte# 1.01 X10^3/uL; Monocyte% 10.6 % (0-10); Neutrophil % 71.1 % (47-70); Platelet Count 266 K/mm3 (150-450); RBC Distribution Width CV 12.8 % (11.6-14.6); RBC Distribution Width SD 44.2 fl (35.1-43.9); Red Blood Count 3.41 M/mm3 (4.2-5.4); White Blood Count 9.6 K/mm3 (4.4-11.0)
[2019-04-13 11:52] LABS: POSITIVE COUNT NO; POSITIVE DIFFERENTIAL NO; POSITIVE MORPHOLOGY NO
[2019-04-13 12:12] LABS: Anion Gap 7 (5-15); BUN 18 mg/dL (7-18); BUN/Creat Ratio 17.6 RATIO (10-20); Calcium,Total 8.6 mg/dL (8.5-10.1); Chloride 86 mmol/L (98-107); Creatinine, Serum 1.02 mg/dL (0.55-1.02); EST Glomerular Filtration Rate 57 mL/min (>60); Est Glom Filt Rate - Afr Amer 69 mL/min (>60); Estimated Creatinine Clearance 45.58 ml/min; Glucose 91 mg/dL (74-106); Potassium 4.5 mmol/L (3.5-5.1); Sodium Level 121 mmol/L (136-145)
[2019-04-13] MEDS: 0.9% Normal Saline 1,000 ML 999 ML IV (14:00)
--- NOTE | 2019-04-13 14:47 | NURSING ---
DR KARMEN BUTLER
--- NOTE | 2019-04-13 14:56 | NURSING ---
PCU KARMEN VERTIGO, VOMITING, HYPONATREMIA
[2019-04-13] MEDS: 0.9% Normal Saline 1,000 ML 150 ML IV ×2 (15:55→18:33)
--- NOTE | 2019-04-13 15:57 | PCM.HP.STD ---
Problem List (1) Vertigo Status: Acute (2) Hyponatremia Status: Acute (3) Viral URI Status: Resolved (4) HTN (hypertension) Status: Chronic Qualifiers: Hypertension type: essential hypertension Qualified Code(s): I10 - Essential (primary) hypertension (5) Hypothyroidism Status: Chronic Qualifiers: Hypothyroidism type: unspecified Qualified Code(s): E03.9 - Hypothyroidism, unspecified History of Present Illness Date of Admission: 04/13/19 Chief Complaint: Dizziness, vertigo and vomiting The patient is a 69 year old F with history of hypertension hypothyroidism came to ER with 2 days history of nausea, vomiting, dizziness and vertigo. Patient had vomited 6 times since yesterday and very dehydrated. She denies headache. She also feels heaviness on the right ear. Denies any flulike symptoms. On basic labs, sodium is 121. She was admitted for similar symptomatology in February 2019. Chest x-ray does not show acute change. EKG normal sinus rhythm at 65 bpm. Patient also felt gait instability/disequilibrium. [] Past Medical History Past Medical History (Chronic Problems): Chronic Problems HTN (hypertension) (Chronic) Hypothyroidism (Chronic) Allergies No Known Allergies Allergy (Verified 02/27/19 00:46) Home Medications: Ambulatory Orders Medication Instructions Recorded Levothyroxine Sodium 50 mcg PO DAILY 02/26/19 Lisinopril/Hydrochlorothiazide 1 tab PO BID 02/26/19 [Lisinopril-Hctz 20-12.5 mg Tab] Meclizine HCl [Antivert] 12.5 mg PO 4X/DAY PRN PRN #30 02/27/19 tablet Fluticasone Propionate 1 spray NASAL DAILY 04/13/19 Prednisone 10 mg PO BID 04/13/19 Surgical History: - - Tonsillectomy, D&C, right rotator cuff repair status post fall, bilateral tubal ligation. 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 Paternal History Items: - - Patient notes a paternal family history of bladder cancer with tobacco use history, chronic COPD, emphysema, diabetes mitis type II which was noted to be diet-controlled. Review of Systems Constitutional: Denies: Chills, Fever, Weight Change HEENT: Denies: Head Aches, Sinus Congestion, Sinus Drainage Cardiovascular: Denies: Chest Pain, Palpitations Respiratory: Denies: Cough, Shortness of breath at rest, Sputum production Gastrointestinal: Reports: Nausea, Vomiting. Denies: Abdominal Pain, Constipation, Diarrhea, Hematemesis, Hematochezia, Melena Genitourinary: Denies: Dysuria Musculoskeletal: Denies: Joint Pain, Joint Tenderness Skin: Denies: Rash, Wounds Neurological: Reports: Balance problems, Incoordination. Denies: Blurred vision, Focal weakness, Numbness, Tingling Psychiatric: Denies: Anxiety, Depression, Homicidal Ideations, Suicidal Ideations Hematologic/ Lymphatic: Denies: Easy Bruising, Easy Bleeding VTE Information - Inpt Only VTE Present on Admission: No VTE Mechan Device Prophylaxis: None VTE Pharm Prophylaxis ordered?: Yes Patient Problems: Active and Suspected Problems Vertigo (Acute) - Physical Exam General: Alert, Oriented x3, Cooperative, - HEENT: Atraumatic, PERRLA, EOMI, Normocephalic, - - Small wax present on right ear otherwise bilateral tympanic membrane well visualized light reflex present. No tenderness present in postauricular/mastoid process. On Fay-Hallpike maneuver, patient felt more dizzy and lightheaded when bending to her right side. Diplopia present on extreme left gaze Oral: Dry Mucosa - Oral mucosa is very dry Neck: Supple, No JVD, Negative Carotid Bruits Lungs: Clear to auscultation, Normal air movement, No rhonchi, No wheeze, No rales Cardiovascular: Regular rate, Regular Rhythm, Normal S1, Normal S2, No murmurs Abdomen: Bowel Sounds Present, Soft, Non Tender, Non-Distended Extremities: No edema, Capillary Refill Less than 3 Seconds Skin: No rashes, No breakdown Musculoskeletal: No Tenderness to Palpation of Joints or Extremities, Arthritic Changes Neurological: Cranial nerves II-XII grossly intact, Deep Tendon Reflexes 2+/4 and Symmetrical, Neuro grossly intact, Motor Exam 5/5 strength throughout, - - [id number] test and [id number] test are normal. Psych/Mental Status: Normal Affect, Appropriate Vital Signs Temp Pulse Resp BP Pulse Ox 97.7 F L 89 17 158/69 H 99 04/13/19 11:00 04/13/19 15:06 04/13/19 15:06 04/13/19 15:06 04/13/19 15:06 Oxygen Delivery Method Room Air Weight: 171 lb 4.787 oz Body Mass Index (BMI) 29.4 Laboratory Tests Past 24 Hrs 04/13/19 04/13/19 04/13/19 11:41 11:41 11:41 WBC 9.6 RBC 3.41 L Hgb 11.4 L Hct 32.6 L MCV 95.6 MCH 33.4 H MCHC 35.0 RDW 12.8 RDW Differential 44.2 H Plt Count 266 MPV 9.7 Immature Gran % (Auto) 0.900 Neut % (Auto) 71.1 H Lymph % (Auto) 16.9 L [place] % (Auto) 10.6 H Eos % (Auto) 0.4 Baso % (Auto) 0.1 Absolute Neuts (auto) 6.8 Absolute Lymphs (auto) 1.62 Total Counted Not Reportable Sodium 121 L Potassium 4.5 Chloride 86 L Carbon Dioxide 28.0 Anion Gap 7 BUN 18 Creatinine 1.02 Estim Creat Clear Calc 45.58 Est GFR (MDRD) Af Amer 69 Est GFR (MDRD) Non-Af 57 L BUN/Creatinine Ratio 17.6 Glucose 91 Calcium 8.6 Total Bilirubin Pending Direct Bilirubin Pending AST Pending ALT Pending Alkaline Phosphatase Pending Troponin I < 0.015 Total Protein Pending Albumin Pending Assessment/Plan All Active Problems Viral URI (Resolved) Vertigo (Acute) Hyponatremia (Acute) The patient is a 69 year old F with history of hypertension hypothyroidism came to ER with 2 days history of nausea, vomiting, dizziness and vertigo. Patient had vomited 6 times since yesterday and very dehydrated.On basic labs, sodium is 121. She was admitted for similar symptomatology in February 2019. Chest x-ray does not show acute change. EKG normal sinus rhythm at 65 bpm. Patient also felt gait instability/disequilibrium. 1. Dizziness/vertigo and intractable vomiting probably peripheral vertigo/BPPV: The patient is being admitted in PCU. She did not had MRI brain during last time. MRI brain is ordered. If MRI is positive of posterior stroke which seems less likely, will need full stroke work-up. In the meantime, symptomatic management with meclizine, Phenergan and if needed diazepam. 2. Severe hyponatremia,: Patient had similar hyponatremia due to intractable vomiting during previous admission. IV fluid normal saline at 150 mill per hour repeat sodium at about 8 PM and titrate the rate of IV fluid. 3. Hypertension: Blood pressure is slightly elevated 159/66. Blood pressure medication regimen. Titrate as per the blood pressure profile. 4. Hypothyroidism: Synthroid home dose resumed. DVT prophylaxis: On Lovenox 40 mg subcu daily. Home medication reconciliation done. Patient was prescribed prednisone 10 mg twice daily by nurse practitioner, PCP office for pink eyes. Pinkeye is resolved. Patient took for 5 days. No good indication for prednisone and hence discontinued. Code Visit OBSV E&M: 76522 Initial observation care L3
[2019-04-13 16:40] LABS: AST(SGOT) 34 U/L (15-37); Alanine Aminotransfer ALT/SGPT 29 U/L (13-56); Albumin, Serum 3.8 g/dL (3.2-5.0); Alkaline Phosphatase 64 U/L (45-117); Globulin 3.1 g/dL (2.2-4.2); Protein, Total 6.9 g/dL (6.4-8.2)
[2019-04-13] MEDS: Enoxaparin 40 MG/0.4 ML Syringe SC (17:09)
[2019-04-13 20:40] LABS: Sodium Level 121 mmol/L (136-145)
--- NOTE | 2019-04-13 21:15 | NURSING ---
This RN is taking over patient care at this time.
--- NOTE | 2019-04-13 22:50 | PN_ITS ---
Progress Note Patient was admitted for vertigo and hyponatremia on IV normal saline. Her sodium was 121 which has remained same after IV bolus at the ED and IV infusion. We will increase normal saline IV infusion from 150 MLS per hour to 175 mL's per hour and would extend the time of administration. Repeat BMP already ordered in a.m. Patient is on home lisinopril hydrochlorothiazide combo and is asking for this medication to be restarted. Her blood pressure is stable and can tolerate antihypertensive medication. However because of hyponatremia we wi ll hold HCTZ and we will resume lisinopril.
[2019-04-13] MEDS: Lisinopril 20 MG Tablet PO (23:02)
[2019-04-14] MEDS: 0.9% Normal Saline 1,000 ML 175 ML IV ×2 (01:20→06:36)
[2019-04-14 02:59] VITALS: PULSE 70
[2019-04-14 04:46] VITALS: BP 160/71; PULSE 77; RESP 16; TEMP 36.7; O2SAT 93
[2019-04-14] MEDS: Levothyroxine 50 MCG Tablet PO (04:59)
[2019-04-14 06:21] LABS: Anion Gap 8 (5-15); BUN 14 mg/dL (7-18); BUN/Creat Ratio 14.3 RATIO (10-20); Calcium,Total 8.1 mg/dL (8.5-10.1); Chloride 99 mmol/L (98-107); Creatinine, Serum 0.98 mg/dL (0.55-1.02); EST Glomerular Filtration Rate 60 mL/min (>60); Est Glom Filt Rate - Afr Amer 72 mL/min (>60); Estimated Creatinine Clearance 47.44 ml/min; Glucose 87 mg/dL (74-106); Potassium 4.3 mmol/L (3.5-5.1); Sodium Level 132 mmol/L (136-145); Thyroid Stim Hormone (TSH) 5.29 uIU/mL (0.358-3.74)
[2019-04-14 07:25] VITALS: PULSE 69
[2019-04-14 07:38] VITALS: O2SAT 97
[2019-04-14 08:00] VITALS: BP 154/69; PULSE 84; RESP 20; TEMP 37.2; O2SAT 94
[2019-04-14] MEDS: Lisinopril 20 MG Tablet PO (08:03)
[2019-04-14 08:07] VITALS: RESP 18
--- NOTE | 2019-04-14 08:30 | MRI_ITS ---
STUDY: MRI BRAIN WITHOUT CONTRAST REASON FOR EXAM: Female, 69 years old. Dizziness and vertigo TECHNIQUE: Standardized multiplanar fat and water weighted pulse sequences were obtained. COMPARISON: [id number]. FINDINGS: There is moderate cerebral atrophy with widening of the extra-axial spaces and ventricular dilatation. There are a limited number of small white matter hyperintensities, distributed throughout the deep white matter tracts of the cerebral hemispheres, consistent with mild chronic white matter ischemic changes. There is no evidence for recent intracranial ischemia or other cause of cytotoxic edema on diffusion weighted imaging (DWI). Normal T2* images of the brain without demonstrated susceptibility artifact. There is no demonstrated hemosiderin stain. Normal bilateral basal ganglia. Normal thalami. There is no extra-axial fluid accumulation. Normal flow voids within the major intracranial circulation suggesting patency by spin echo criteria. Normal sella turcica, pituitary gland, infundibular stalk, optic chiasm and hypothalamus. Normal tectal plate and pineal gland. Normal midbrain, lindy and medulla. Normal cerebellum. Normal basal cisterns. Normal bilateral temporal bones. Normal bilateral internal auditory canals. No demonstrated orbital abnormality, within the constraints of a routine brain study. Normal visualized paranasal sinuses. Normal calvarium and skull base. Normal visualized soft tissue structures. Normal visualized upper cervical spine. MRI/Brain without Contrast IMPRESSION: No acute intracranial abnormality. Involutional changes of the brain, as described above. Electronically Signed: Yovany Sarabia, at 9:41 EDT Tel , Service support ,
--- NOTE | 2019-04-14 11:15 | DCINST_ITS ---
- Discharge Diagnoses Current Active Problems: Current Active and Chronic Problems Vertigo (Acute) You will use the following diet at home:: No restrictions Your food should be the consistency of: Regular Your liquids should be the consistency of: Regular/Thin Discharge Activity: Return to Normal Activity Weight Bearing Status: Full weight bearing Instructions: DIZZINESS, Unk Cause Additional Instructions: DISCUSS A CONSULT FOR VESTIBULAR TRAINING/PHYSICAL THERAPY WITH YOUR PHYSICALN IF SYMPTOMS PERSIST Allergies/Adverse Reactions: Allergies No Known Allergies Allergy (Verified 02/27/19 00:46) Medications to take at Discharge Levothyroxine Sodium 50 mcg PO DAILY 02/26/19 Fluticasone Propionate 1 spray NASAL DAILY 04/13/19 Diazepam [Valium] 5 mg PO 4X/DAY PRN PRN 7 Days #20 tablet 04/14/19 Lisinopril [Zestril] 40 mg PO DAILY #60 tab 04/14/19 The following prescriptions were given: Diazepam [Valium] 5 mg PO 4X/DAY PRN PRN 7 Days #20 tablet PRN Reason: Vertigo Transmission Status: Received by [id number] Lisinopril [Zestril] 40 mg PO DAILY #60 tab Transmission Status: Pending to [id number] Primary Care Physician: Chicho Ojeda MD [Primary Care Provider] - Please follow up with your Primary Care Physician in: in one week Test Results: Test results from this visit will be discussed in further detail at your follow- up appointment, if applicable.
--- NOTE | 2019-04-14 11:47 | PHA.DC.MC ---
Pharmacy Service has performed discharge medication reconciliation and counseling for this patient. The patient's discharge medication list was reviewed for discrepancies and discrepancies were resolved. The patient was counseled on the following discharge medications and changes in medications for homegoing were reviewed. The Reason for Use, instructions for use, and potential side effects were reviewed for all new medications. The patient's questions regarding all of their medications were answered. The patient was able to verbally demonstrate an understanding of their discharge medications. Home Medications Levothyroxine Sodium 50 mcg PO DAILY 02/26/19 Fluticasone Propionate 1 spray NASAL DAILY 04/13/19 Diazepam [Valium] 5 mg PO 4X/DAY PRN PRN 7 Days #20 tab 04/14/19 Lisinopril [Zestril] 40 mg PO DAILY #60 tab 04/14/19
--- NOTE | 2019-04-16 08:23 | PCM.DC.SUM ---
Discharge Date and Diagnosis Date of Admission: 04/13/19 Date of Discharge: 04/14/19 - Primary Discharge Diagnosis #1 benign vertigo #2 hyponatremia #3 hypertension #4 hypothyroidism - Secondary Discharge Diagnosis Chronic Problems HTN (hypertension) (Chronic) Hypothyroidism (Chronic) Hospital Course and Treatment Operations: None Procedures: None Summary of Care Provided: The patient is a 69 year old F who was seen in the emergency room at [facility] with a chief complaint of vertiginous symptoms. She had been admitted approximately a week before and had undergone testing for the same symptoms without discovering any etiology of the symptoms. She was given medication for vertigo and discharged and she return to the ER on 04/13/2019 with similar complaints. Patient's neurological exam in the emergency room was unremarkable with an NIH of 0, labs were performed and were unremarkable except for sodium of 122. Patient was given IV Ativan and fluids in the emergency room and had some improvement of her symptoms, the patient did not feel she was able to be discharged home however and she was placed in the observation status on PCU, her hydrochlorothiazide which she took for blood pressure was held because her sodium was low. Fluids were administered and her sodium the next day was 132. Patient underwent an MRI which showed no abnormality. On 04/14/2019, patient was seen and examined: On examination she appeared in good health and spirits. Vital signs as documented. Skin warm and dry and without overt rashes. Neck without JVD. Lungs clear. Heart exam notable for regular rhythm, normal sounds and absence of murmurs, rubs or gallops. Abdomen unremarkable and without evidence of organomegaly, masses, or abdominal aortic enlargement. Extremities nonedematous. Neuro: Cranial nerves II through XII are grossly intact, no focal motor deficits were noted, sensation to light touch and pinprick is intact. Psych: Patient is alert and oriented x3, she does not appear anxious or depressed On 04/14/2019, patient was seen and examined and felt to be in stable condition for discharge home. - Physical Exam Vital Signs Temp Pulse Resp BP Pulse Ox 98.9 F 84 18 154/69 H 94 04/14/19 08:00 04/14/19 08:00 04/14/19 08:07 04/14/19 08:00 04/14/19 08:00 Oxygen Delivery Method Room Air Weight: 77.7 kg Body Mass Index (BMI) 29.4 Intake and Output for Last 24 Hours 04/14/19 04/15/19 04/16/19 23:59 23:59 23:59 Intake Total 1017 / 1017 Balance 1017 / 1017 Discharge Activity: Return to Normal Activity Weight Bearing Status: Full weight bearing Home Medications: Medications to take at Discharge Levothyroxine Sodium 50 mcg PO DAILY 02/26/19 Fluticasone Propionate 1 spray NASAL DAILY 04/13/19 Diazepam [Valium] 5 mg PO 4X/DAY PRN PRN 7 Days #20 tab 04/14/19 Lisinopril [Zestril] 40 mg PO DAILY #60 tab 04/14/19 Following Prescrptions Were Given to Patient: Diazepam [Valium] 5 mg PO 4X/DAY PRN PRN 7 Days #20 tab PRN Reason: Vertigo Transmission Status: [facility] by [id number] Lisinopril [Zestril] 40 mg PO DAILY #60 tab Transmission Status: Received by [id number] Primary Care Physician: Chicho Ojeda MD [Primary Care Provider] - Please follow up with your Primary Care Physician in: in one week Patient Instructions: DIZZINESS, Unk Cause Disposition: Home Minutes spent on discharge:: 28 Patient Condition:: Stable Medical Necessity - Tobacco Use Smoking Status: Never smoker Tobacco Use: Non-smoker Meaningful Use Info Meaningful Use Diagnoses (Choose all that apply): None applicable Code Visit OBSV E&M: 95324 Observation care discharge
== END 2019-04-14 11:18 | disposition home or self-care (01) ==
LOC: ED 12:15 → PCU 15:14
PROVIDERS: Admitting Provider Internal Medicine; Emergency Provider Emergency Medicine; Family Provider Family Medicine; PCP Family Medicine; Visit Provider Internal Medicine
DX: R42 Dizziness and giddiness (principal); E87.1 Hypo-osmolality and hyponatremia; E03.9 Hypothyroidism, unspecified; I10 Essential (primary) hypertension; Z79.899 Other long term (current) drug therapy; R11.0 Nausea; E86.0 Dehydration
CPT/HCPCS: 36415; 70551; 71045; 80048; 80076; 84295; 84443; 84484; 85025; 93005; 96361; 96372; 96374; 97161; 99218; 99285; J7030; A4216; G0378

== ENCOUNTER → 2019-04-21 12:10 | Outpatient (CLI) | payer MEDICARE, OTHER, SELFPAY ==
[2019-04-13 15:30] VITALS: BMI 29.4
[2019-04-21 14:27] LABS: Anion Gap 8 (5-15); BUN 19 mg/dL (7-18); BUN/Creat Ratio 18.4 RATIO (10-20); Calcium,Total 9.1 mg/dL (8.5-10.1); Chloride 106 mmol/L (98-107); Creatinine, Serum 1.03 mg/dL (0.55-1.02); EST Glomerular Filtration Rate 57 mL/min (>60); Est Glom Filt Rate - Afr Amer 69 mL/min (>60); Glucose 83 mg/dL (74-106); Potassium 4.4 mmol/L (3.5-5.1); Sodium Level 142 mmol/L (136-145)
== END ==
PROVIDERS: Family Provider Family Medicine; PCP Family Medicine; Visit Provider Nurse Practitioner Family
DX: E78.1 Pure hyperglyceridemia (principal)
CPT/HCPCS: 36415; 80048

== ENCOUNTER → 2019-05-20 09:43 | Outpatient (CLI) | payer MEDICARE, OTHER, SELFPAY ==
[2019-04-13 15:30] VITALS: BMI 29.4
--- NOTE | 2019-05-20 09:49 | BD_ITS ---
STUDY: DUAL ENERGY X-RAY ABSORPTIOMETRY / DXA REASON FOR EXAM: Female, 69 years old. The patient is postmenopausal. Loss of height. TECHNIQUE: Bone Mineral Density (BMD) measurements of lumbar spine and bilateral hips were obtained. COMPARISON: Comparison is made with prior study dated May 15, 2017. FINDINGS: Lumbar Spine (L1-L4): g/cm2 (1.088) / T-score (-0.8) / Z-score (0.9) Findings are suggestive of normal bone density with a low fracture risk. Left Femur Total: g/cm2 (0.956) / T-score (-0.4) / Z-score (1.0) Left Femoral Neck: g/cm2 (0.810) / T-score (-1.6) / Z-score (0.0) Right Femur Total: g/cm2 (0.938) / T-score (-0.6) / Z-score (0.8) Right Femoral Neck: g/cm2 (0.837) / T-score (-1.4) / Z-score (0.2) The T-Scores on the most recent prior examination were: Lumbar Spine (L1-L4): There has been improvement of bone density since the previous examination. Left Femur Total: which represents an improvement of 3.5%. Right Femur Total: which represents a worsening of 0.4%. BD/Dexa Bone Density Study IMPRESSION: The patient is considered osteopenic as outlined below according to World [place] Organization (WHO) criteria with a moderate fracture risk. There has been improvement of bone density since the previous examination. Reference Information: The T-score is the number of standard deviations above or below the standard which is normal for young adults at their peak bone mineral density. The World Health Organization (WHO) interprets the T-scores as follows: Above -1 Normal bone density Between -1 and -2.5 Osteopenia Equal to / or below -2.5 Osteoporosis As a practical clinical guideline, osteopenia may be graded as follows: Mild -1 through -1.5 Moderate -1.6 through -2.0 Severe -2.1 through -2.4 The Z-score is the number of standard deviations above or below age-matched controls. A Z-score of less than -1.5 would be considered abnormal. References: 1. NIH Osteoporosis and Related Bone Diseases http://www.osteo.org 2. International Society for Clinical Densitometry http://www.iscd.org 3. National Osteoporosis Foundation http://www.nof.org Electronically Signed: Lj Velázquez, at 14:51 EDT , Service support ,
== END ==
PROVIDERS: Family Provider Family Medicine; PCP Family Medicine; Referring Provider Family Medicine; Visit Provider Family Medicine
DX: Z78.0 Asymptomatic menopausal state (principal)
CPT/HCPCS: 77080

== ENCOUNTER → 2019-06-03 14:35 | Outpatient (CLI) | payer MEDICARE, OTHER, SELFPAY ==
[2019-04-13 15:30] VITALS: BMI 29.4
--- NOTE | 2019-06-03 14:38 | BI_ITS ---
MAMMOGRAPHY - BILATERAL SCREENING REASON FOR EXAM: Female, 69 years old. Routine annual screening examination. PERTINENT HISTORY: Aunt with breast cancer. Remote left stereotactic breast biopsy. TECHNIQUE: Digital bilateral breast mickie (3D mammographic acquisition) in the CC and MLO projections. 2-D mediolateral oblique (MLO) and craniocaudad (CC) views of both breasts were obtained. CAD: Full Field Digital Mammography with Computer Added Detection was performed. COMPARISON: Comparison is made with prior study dated May 31, 2018 and May 15, 2017. FINDINGS: Breast Composition: The breasts are heterogeneously dense, which may obscure small masses. There are no dominant masses or suspicious calcifications. A tissue clip marker is once again seen in the upper lateral aspect of the left breast. No other significant abnormalities are identified. There has been no significant change since the prior study. BI/SCREEN MAMM (CAD) W/MICKIE BILAT IMPRESSION: Stable bilateral screening mammogram. Yearly follow-up mammogram recommended. (A) ASSESSMENT CATEGORY: BIRADS Category 2: Benign. A letter regarding these results will be sent to the patient by the facility within 30 days. Approximately 10% of breast cancers are not detected by mammography. A normal mammogram should not delay biopsy of a clinically suspicious abnormality. [id number] Electronically Signed: Lj Velázquez, at 8:19 EDT , Service support ,
== END ==
PROVIDERS: Family Provider Family Medicine; PCP Family Medicine; Referring Provider Obstetrics & Gynecology; Visit Provider Obstetrics & Gynecology
DX: Z12.31 Encounter for screening mammogram for malignant neoplasm of breast (principal)
CPT/HCPCS: 77063; 77067

== ENCOUNTER → 2019-06-05 08:54 | Outpatient (CLI) | payer MEDICARE, OTHER, SELFPAY ==
[2019-04-13 15:30] VITALS: BMI 29.4
[2019-06-05 10:53] LABS: Cholesterol 176 mg/dL (200); High Density Lipoprotein 42 mg/dL; Triglycerides 171 mg/dL; Very Low Density Lipoprotein 34 mg/dL (5-40)
[2019-06-05 11:15] LABS: Vitamin D,25 Hydroxy 65.7 ng/mL (29.95-100.01)
[2019-06-10 16:51] LABS: Anion Gap 4 (5-15); BUN 16 mg/dL (7-18); BUN/Creat Ratio 13.7 RATIO (10-20); Calcium,Total 9.5 mg/dL (8.5-10.1); Chloride 107 mmol/L (98-107); Creatinine, Serum 1.17 mg/dL (0.55-1.02); EST Glomerular Filtration Rate 49 mL/min (>60); Est Glom Filt Rate - Afr Amer 59 mL/min (>60); Glucose 89 mg/dL (74-106); Potassium 4.8 mmol/L (3.5-5.1); Sodium Level 138 mmol/L (136-145); Thyroid Stim Hormone (TSH) 0.37 uIU/mL (0.358-3.74)
== END ==
PROVIDERS: Family Provider Family Medicine; PCP Family Medicine; Referring Provider Family Medicine; Visit Provider Family Medicine
DX: I10 Essential (primary) hypertension (principal); E55.9 Vitamin D deficiency, unspecified; Z13.220 Encounter for screening for lipoid disorders
CPT/HCPCS: 36415; 80048; 80061; 82306; 84443

== ENCOUNTER 2019-06-09 14:00 | Outpatient (RCR) | payer MEDICARE, OTHER, SELFPAY ==
[2019-04-13 15:30] VITALS: BMI 29.4
--- NOTE | 2019-05-06 10:42 | HP.PTEVAL_ITS ---
Patient's Visit Information LUIS JOHNSON is a 69 year old F referred to Physical Therapy by GORDON Ortiz with a diagnosis of vertigo. Date of Evaluation: 05/06/19 Physical Therapist: Humble Ramires DPT, OCS, CSCS - Visit Plan Frequency: 1x/Week Duration: 4-6 Weeks Plan: weekly for progression of adaptation and MSQ/habituation. - Subjective Findings: Has vertigo. First in January on Sunday afternoon and escalated adn hospitalized after vomitting for hours. Was dehydrated and IV fluids and overnight stay. Vertigo mostly gone the next day. Had sinus infection the weekend prior. Was pretty good and then was helping burn brush and effected nasal passages and got vertigo again end of March. Hospitalized overnight again due to spinning again. Catscan adn MRI were negative. Heart tests EKG was fine. Blood tests and sodium depleted. Given ativan and was fine. Also given diazepam. Gets sensation every now and then and takes medicine and is fine. This has occurred when working alot of head movement side to side or turning fast. Sense of movement continue until she stops to calm down. Otherwise balance is normal and feels good. This happens 4-5x/day. If she stand up too quickly. Lying down is not bad. No DE JESUS and no neck pain. Sleeping is OK. Activities are slower now due to this sensation but is trying to do everything. Basic ADLs are good if she takes her time. Not employed. - Objective c/s AROM WNL without pain and symmetrical. gait and baalnce is good. - B hallpike harriet and roll test. Oculomotor: no nystagmus with gaze or head shake. - skew eye deviation. normal convergence. pursuit adn saccades are normal adn asymptomatic. VOR horiz 30 sec gives 2/10 for 10 sec, vertical not as bad. 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 For Medicare and Medicare HMO plans, please review the plan of care and approve it. It will need to be FAXED BACK to us at [phone] for Medicare purposes. For Medicare only, by signing this I certify the plan of care. Please let me know if there are questions or concerns regarding this plan of c are. Physician Signature: Date:
--- NOTE | 2019-06-09 14:24 | HP.PTDCSUM ---
HP - PT D/C Summary It has been my pleasure to treat LUIS JOHNSON under orders from GORDON Ortiz, for the diagnosis of vertigo for a total of 5 visit(s). Discharge Date: 06/09/19 Please see the following information for a summary of their discharge status. - Subjective Subjective: Doing well, the last ex really helped. i vaccuumed with no dizzyness yesterday and no problem working in garden. Only very rare intermittent quick transient dizzyness for a twinge with looking way up. No activity avoidance. Otherwise has been good. To doctor Rusty tomorrow. - Overall Improvement % Improvement: 97 - Objective Objective/Function: +2 FGA and above normal for age. - B hallnaif harriet. No problems with function. steps reciprocal without rail today. - Goals Goal 1:: turn and bend without symptoms safely Goal Progress: Goal Met Goal 2:: 100% improvement in symptoms and activity back to normal Goal Progress: 97% - Plan Plan: d/c - D/C Information Discharge Comments: Pt doing well and improved balance. No further PT needed. If there are questions or concerns regarding this patient's physical therapy, please feel free to call me at [phone]. Thank you for the referral of this patient. Sincerely, Humble Ramires, DPT, OCS, CSCS
== END 2019-06-09 19:00 | disposition home or self-care (01) ==
LOC: PT 14:00
PROVIDERS: Family Provider Family Medicine; PCP Family Medicine; Referring Provider Nurse Practitioner Family; Visit Provider Nurse Practitioner Family
DX: R42 Dizziness and giddiness (principal)
CPT/HCPCS: 97162; 97530

== ENCOUNTER → 2019-10-21 11:46 | Outpatient (CLI) | payer MEDICARE, OTHER, SELFPAY ==
[2019-04-13 15:30] VITALS: BMI 29.4
[2019-10-24 12:43] LABS: HPV HC, High Risk Negative (Negative)
== END ==
PROVIDERS: Visit Provider Obstetrics & Gynecology
DX: Z12.4 Encounter for screening for malignant neoplasm of cervix (principal); Z78.0 Asymptomatic menopausal state
CPT/HCPCS: 87624; 88175; G0145

== ENCOUNTER → 2019-12-08 11:04 | Outpatient (CLI) | payer MEDICARE, OTHER, SELFPAY ==
[2019-04-13 15:30] VITALS: BMI 29.4
[2019-12-08 12:54] LABS: Anion Gap 5 (5-15); BUN 20 mg/dL (7-18); BUN/Creat Ratio 19.4 RATIO (10-20); Calcium,Total 9.5 mg/dL (8.5-10.1); Chloride 109 mmol/L (98-107); Creatinine, Serum 1.03 mg/dL (0.55-1.02); EST Glomerular Filtration Rate 57 mL/min (>60); Est Glom Filt Rate - Afr Amer 68 mL/min (>60); Glucose 90 mg/dL (74-106); Potassium 4.2 mmol/L (3.5-5.1); Sodium Level 141 mmol/L (136-145); Thyroid Stim Hormone (TSH) 0.69 uIU/mL (0.358-3.74)
== END ==
PROVIDERS: PCP Family Medicine; Referring Provider Family Medicine; Visit Provider Family Medicine
DX: I10 Essential (primary) hypertension (principal); E03.9 Hypothyroidism, unspecified
CPT/HCPCS: 36415; 80048; 84443

== ENCOUNTER → 2020-06-04 08:24 | Outpatient (CLI) | payer MEDICARE, OTHER, SELFPAY ==
[2019-04-13 15:30] VITALS: BMI 29.4
--- NOTE | 2020-06-04 08:27 | BI_ITS ---
MAMMOGRAPHY - BILATERAL SCREENING REASON FOR EXAM: Female, 70 years old. Routine annual screening examination. PERTINENT HISTORY: Aunt with breast cancer. Remote left stereotactic breast biopsy. TECHNIQUE: Digital bilateral breast mickie (3D mammographic acquisition) in the CC and MLO projections. 2-D mediolateral oblique (MLO) and craniocaudad (CC) views of both breasts were obtained. CAD: Full Field Digital Mammography with Computer Added Detection was performed. COMPARISON: Comparison is made with prior study dated 06/03/2019 and 05/31/2018. FINDINGS: Breast Composition: The breasts are heterogeneously dense, which may obscure small masses. There are no dominant masses or suspicious calcifications. Stable benign-appearing bilateral axillary lymph nodes. A tissue clip marker is once again seen in the upper lateral aspect of the left breast No other significant abnormalities are identified. There has been no significant change since the prior study. BI/SCREEN MAMM (CAD) W/MICKIE BILAT IMPRESSION: Stable bilateral screening mammogram. Yearly follow-up mammogram recommended. (A) ASSESSMENT CATEGORY: BIRADS Category 2: Benign. A letter regarding these results will be sent to the patient by the facility within 30 days. Approximately 10% of breast cancers are not detected by mammography. A normal mammogram should not delay biopsy of a clinically suspicious abnormality. [id number] Electronically Signed: Lj Velázquez, at 10:32 EDT , Service support ,
== END ==
PROVIDERS: PCP Family Medicine; Referring Provider Student in an Organized Health Care Education/Training Program; Visit Provider Student in an Organized Health Care Education/Training Program
DX: Z12.31 Encounter for screening mammogram for malignant neoplasm of breast (principal)
CPT/HCPCS: 77063; 77067

== ENCOUNTER 2020-11-03 14:27 | Observation (INO) | payer MEDICARE, OTHER, SELFPAY ==
[2019-04-13 15:30] VITALS: BMI 29.4
[2020-11-03] VITALS (9 sets, daily range): BP systolic 135–207; BP diastolic 61–94; PULSE 68–90; RESP 15–17; TEMP 36.3–36.9; O2SAT 97–100; BMI 28.6; BMI 28.0
--- NOTE | 2020-11-03 14:40 | EKG12_ITS ---
Test Reason : CP Blood Pressure : / mmHG Vent. Rate : 078 BPM Atrial Rate : 078 BPM P-R Int : 128 ms QRS Dur : 086 ms QT Int : 394 ms P-R-T Axes : 011 063 016 degrees QTc Int : 449 ms Sinus rhythm with Premature supraventricular complexes and with frequent Premature ventricular comple xes Otherwise normal ECG Confirmed by MATILDA MEEKS, MASSIEL ([id number]), story editor ALLIE REDD ([id number]) on 11/08/2020 11:02:02 AM Referred By: BARRETT Confirmed By:JESUS GREY MD
--- NOTE | 2020-11-03 14:40 | ED.DCSUM_ITS ---
- ER Visit Summary Date of Service: 11/03/20 Chief Complaint: [Chest pain] History of Present Illness: The patient is a 70 F [presents to the emergency department with complaint of chest pressure especially over the last 12 hours in her left chest radiating into her neck. Patient states the discomfort is been relatively continuous. Over the last 2 to 3 days she has noticed some palpitations and feeling like her heart is pounding. Patient denies recent travel or surgery. No history of PE or DVT. She has no heart history. Her last stress test was 15 to 20 years ago and she is never had a heart cath. Patient does not have a family history of heart disease. She does have history of hypertension. Patient has been compliant with her medications. She denies recent illness. No fever or cough. Patient denies any COVID-19 exposures. Currently rates her pain a 6 out of 10.] Physical Examination: [HEENT-PERRLA, EOMI. Cranial nerves II through XII grossly intact. TMs clear. Mucous membranes moist. No adenopathy. Cardiovascular-regular rate and rhythm without murmur or ectopy Lungs-clear to auscultation, chest wall stable without crepitus or subcu emphysema Abdomen-normoactive bowel sounds, soft, nontender, no rebound or rigidity, no peritoneal signs. Extremities-intact ?4, normal range of motion, normal pulses, atraumatic] Test Results: [EKG obtained on arrival shows sinus rhythm with a ventricular rate 78 bpm with frequent PVCs and bigeminy fashion.] CBC with it was normal. Chemistries unremarkable. Troponin is less than 0.015. Chest x-ray interpreted by myself as normal without any evidence of infiltrate or pneumothorax. Radiology in agreement. Emergency Department Course and Treatment: [Plan established on arrival. Patient placed on satellite project site monitor. Patient given 4 baby aspirin and given sublingual nitro which essentially resolved her pain. Patient had an inch of Nitropaste placed to the anterior chest wall.] Treatment Plan: [Admit] Disposition: [Admit] Impression: [Chest pain-rule out acute coronary syndrome Hypertension] This note was generated with Max [employer] dictation software. It may contain incorrect words, spelling, and punctuation that were not noted in review of the chart prior to signing ED Disposition - Plan for ED Patient: Referrals: Chicho Ojeda MD [Primary Care Provider] -
[2020-11-03] MEDS: Aspirin 81 MG TAB.CHEW 324 MG PO (14:50)
[2020-11-03] MEDS: 0.9% Normal Saline 1,000 ML 150 ML IV (14:50)
--- NOTE | 2020-11-03 14:50 | RAD_ITS ---
STUDY: X-RAY CHEST REASON FOR EXAM: Female, 70 years old. CHEST PAINS TECHNIQUE: Single AP portable view of the chest. COMPARISON: Comparison is made with prior study dated 04/13/2019. FINDINGS: EKG electrodes are seen. The lungs are clear and expanded. There is no demonstrated pleural abnormality. Normal size heart. Normal mediastinum and anamaria. Normal visualized pulmonary arteries. Normal visualized aortic arch and descending thoracic aorta. Normal visualized thoracic spine. Normal visualized ribs, clavicles, and shoulders. There is no demonstrated abnormality of the visualized soft tissue structures of the upper abdomen. RAD/Chest 1 View (Portable) IMPRESSION: Normal x-ray examination of the chest. Electronically Signed: Lj Veálzquez, at 15:11 EST , Service support ,
[2020-11-03] MEDS: Nitroglycerin SL (ED/IMG/CATH) 0.4 MG TABLET SUBLINGUAL (14:53)
[2020-11-03 15:06] LABS: Anion Gap 3 (5-15); BUN 18 mg/dL (7-18); BUN/Creat Ratio 17.1 RATIO (10-20); Chloride 104 mmol/L (98-107); Creatinine, Serum 1.05 mg/dL (0.55-1.02); EST Glomerular Filtration Rate 55 mL/min (>60); Est Glom Filt Rate - Afr Amer 67 mL/min (>60); Estimated Creatinine Clearance 43.67 ml/min; Glucose 93 mg/dL (74-106); Potassium 4.2 mmol/L (3.5-5.1); Sodium Level 137 mmol/L (136-145)
[2020-11-03 15:11] LABS: Absolute Lymphocyte Count 1.97 X10^3/uL (0.83-4.51); Absolute Neutrophil Count 4.7 X10^3/uL (2.0-7.7); Basophil# 0.03 X10^3/uL; Basophil% 0.4 % (0-1); Eosinophil# 0.08 X10^3/uL; Eosinophils% 1.1 % (0-5); Hematocrit 39.1 % (37-47); Hemoglobin 12.9 g/dL (12.0-15.0); Lymphocyte # 1.97 X10^3/ul (4.0); Lymphocyte % 26.3 % (19-41); Mean Corpuscular Hgb 32.7 pg (27.0-32.0); Mean Corpuscular Volume 99.2 fL (81-99); Monocyte# 0.64 X10^3/uL; Monocyte% 8.5 % (0-10); NRBC Flagged by Analyzer 0 % (0-5); Neutrophil # 4.74 X10^3/uL (2.7-7.7); Neutrophil % 63.3 % (47-70); Platelet Count 239 K/mm3 (150-450); RBC Distribution Width CV 12.2 % (11.6-14.6); RBC Distribution Width SD 44.2 fl (35.1-43.9); Red Blood Count 3.94 M/mm3 (4.2-5.4); White Blood Count 7.5 K/mm3 (4.4-11.0)
--- NOTE | 2020-11-03 15:24 | HP.PCM_ITS ---
Problem List (1) Chest pain Status: Acute Qualifiers: Chest pain type: unspecified Qualified Code(s): R07.9 - Chest pain, unspecified (2) Chronic kidney disease (CKD), stage III (moderate) Status: Chronic Qualifiers: Chronic kidney disease stage 3 subtype: unspecified whether 3a or 3b Qualified Code(s): N18.30 - Chronic kidney disease, stage 3 unspecified (3) Hypothyroidism Status: Chronic Qualifiers: Hypothyroidism type: unspecified Qualified Code(s): E03.9 - Hypothyroidism, unspecified (4) HTN (hypertension) Status: Chronic Qualifiers: Hypertension type: essential hypertension Qualified Code(s): I10 - Essential (primary) hypertension History of Present Illness Date of Admission: 11/03/20 Chief Complaint: Chest pressure, palpitations The patient is a 70 y/o F w/ PMHx: HTN, Hypothyroidism, CKD stage III who presents to the [facility] ED on 11/03/20 with history of ongoing unrelenting chest pressure for ~ 12 hours prior to ED presentation, noted primarily L chest with radiation into her L neck, described as a fullness sensation with additionally sensation of heart pounding/skipping beats/palpitations over the last 3-4 days. She notes having had similar presentation prior. She notes that her discomfort initially was 7-8 out of 10 in severity pressure ladd and upon evaluation in the ED had decreased to 1-2 out of 10 in severity. She specifically denies any significant dyspnea, diaphoresis or nausea associated. Last stress testing was 15-20 years prior and was unremarkable at that time. Work-up in the ED included T 97.3 temporally, heart rate 90, BP initially 207/94 with repeat following intervention 148/69, respiratory rate 15, 99% on room air, CBC with WBC 7.5, hemoglobin 12.9, platelet 239 without shift, BMP with BUN/creatinine 18/1.05 otherwise not marked appearing, troponin less than 0.015, chest x-ray with no acute cardiopulmonary findings, EKG with sinus rhythm with PVCs and bigeminy fashion with no acute evidence of ischemia. In the ED patient ministered aspirin 324 mg p.o. x1, normal saline and nitroglycerin. Past Medical History Past Medical History (Chronic Problems): Chronic Problems Chronic kidney disease (CKD), stage III (moderate) (Chronic) HTN (hypertension) (Chronic) Hypothyroidism (Chronic) Allergies No Known Allergies Allergy (Verified 11/03/20 14:28) Home Medications: Ambulatory Orders Medication Instructions Recorded Calcium Carbonate/Vitamin D3 2 tab PO DAILY 11/03/20 [Calcium 500 mg Chewable Tablet] Cholecalciferol (Vitamin D3) 5,000 unit PO DAILY 11/03/20 [Vitamin D3] Glucosamine/D3/Boswellia Lynda 1 tab PO BID 11/03/20 [Osteo Bi-Flex Tablet] Levothyroxine Sodium 75 mcg PO DAILY 11/03/20 Lisinopril 40 mg PO DAILY 11/03/20 Multivitamin 1 ea PO DAILY 11/03/20 Surgical History: - - Tonsillectomy, D&C, right rotator cuff repair status post fall, bilateral tubal ligation. Psychiatric History: No pertinent psych hx [employer] History: No pertinent [employer] history Lives: Spouse/ Significant Other Smoking Status: Never smoker Tobacco Use: Non-smoker Alcohol: Occasional Drugs: None - *Family History Maternal History Items: - - Patient notes a maternal family history of hypertension, hyperlipidemia, eventual at age 94 secondary to renal failure. Paternal History Items: - - Patient notes a paternal family history of bladder cancer with tobacco use history, chronic COPD, emphysema, diabetes mitis type II which was noted to be diet-controlled. Review of Systems Constitutional: Reports: Weakness, Fatigue. Denies: Anorexia, Chills, Fever, Malaise, Weight Change HEENT: Reports: - - Fullness sensation in her throat.. Denies: Head Aches, Sinus Congestion, Sinus Drainage Cardiovascular: Reports: Chest Pain, Chest Pressure, Palpitations. Denies: Light Headedness, Orthopnea, Syncope Respiratory: Denies: Cough, Shortness of Breath, Shortness of breath at rest, Shortness of breath upon exertion, Sputum production Gastrointestinal: Denies: Abdominal Pain, Nausea, Vomiting Genitourinary: Denies: Dysuria Musculoskeletal: Denies: Joint Pain, Joint Tenderness Skin: Denies: Rash, Wounds Neurological: Denies: Numbness, Tingling, Focal weakness Psychiatric: Denies: Anxiety, Depression, Homicidal Ideations, Suicidal Ideations Hematologic/ Lymphatic: Denies: Easy Bruising, Easy Bleeding VTE Information - Inpt Only VTE Present on Admission: No VTE Mechan Device Prophylaxis: SCD's VTE Pharm Prophylaxis ordered?: Yes Subjective: Patient seated upright in the ED bed, mildly fatigued otherwise no acute distress, notes pressure is decreased to 1-2 out of 10 in severity. Objective: Physical Examination: General: awake, alert, oriented x 3 and cooperative, seated upright in the ED bed in no apparent distress, notes pressure is improving. Skin: normal color, turgor, no icterus, cyanosis. HEENT: AT/NC, EOMI, PERRLA, MMM, no carotid bruits or JVD noted. Lungs: CTA bilaterally, moderate effort, mild decrease BL bases, no rales, ronchi or wheezing. Heart: Regular rate and rhythm; no gallop, rub audible. Abdomen: soft, overweight, NTTP, ND, normal BS, no HSM. Extremities: no cyanosis, clubbing, or edema. Neurological: patient awake, alert, oriented as noted; cognitive function intact; pupils equally reactive to light and accomodation; cranial nerves II-XII grossly normal, moving all 4 extremities, no focal deficits, strength mildly global decrease secondary to acute complaints. Psychiatric: affect appears mildly fatigued otherwise normal, no acute evidence of depressive or anxiety feelings. - Physical Exam Vitals/I&O's: Vital Signs Temp Pulse Resp BP Pulse Ox 97.3 F L 82 15 148/69 H 99 11/03/20 14:28 11/03/20 14:53 11/03/20 14:28 11/03/20 14:53 11/03/20 14:42 Oxygen Delivery Method Room Air Weight: 166 lb 14.239 oz Body Mass Index (BMI) 28.6 Laboratory Results 11/03/20 14:31: WBC 7.5, RBC 3.94 L, Hgb 12.9, Hct 39.1, MCV 99.2 H, MCH 32.7 H, MCHC 33.0, RDW Std Deviation 44.2 H, RDW Coeff of Ivelisse 12.2, Plt Count 239, MPV 11.0, Immature Gran % (Auto) 0.400, Neut % (Auto) 63.3, Lymph % (Auto) 26.3, Randolph % (Auto) 8.5, Eos % (Auto) 1.1, Baso % (Auto) 0.4, Absolute Neuts (auto) 4.7, Absolute Lymphs (auto) 1.97, Nucleated RBC % 0 11/03/20 14:31: Sodium 137, Potassium 4.2, Chloride 104, Carbon Dioxide 30.0, Anion Gap 3 L, BUN 18, Creatinine 1.05 H, Estim Creat Clear Calc 43.67, Est GFR (MDRD) Af Amer 67, Est GFR (MDRD) Non-Af 55 L, BUN/Creatinine Ratio 17.1, Glucose 93, Calcium 10.0, Troponin I < 0.015 Current Medications Sodium Chloride () 1,000 mls @ 150 mls/hr IV .Q6H40M [facility] Last Admin: 11/03/20 14:50 Dose: 150 mls/hr Documented by: Nitroglycerin (Nitroglycerin Sl (Ed/Img/Cath) 0.4 Mg Tablet) 0.4 mg SUBLINGUAL Q5M PRN PRN Reason: Chest pain Last Admin: 11/03/20 14:53 Dose: 0.4 mg Documented by: Assessment/Plan All Active Problems Chest pain (Acute) Viral URI (Resolved) Vertigo (Acute) Hyponatremia (Acute) The patient is a 70 y/o F w/ PMHx: HTN, Hypothyroidism, CKD stage III who presents to the [facility] ED on 11/03/20 with history of ongoing unrelenting chest pressure for ~ 12 hours prior to ED presentation, noted primarily L chest with radiation into her L neck, described as a fullness sensation with additionally sensation of heart pounding/skipping beats/palpitations over the last 3-4 days. 1. Chest Pain, palpitations: ED evaluation with troponin less than 0.015, chest x-ray with no acute cardiopulmonary findings, EKG with sinus rhythm with PVCs and bigeminy fashion with no acute evidence of ischemia. Will admit to PCU, place on a monitored bed to assure no acute myocardial infarction with serial cardiac enzymes and EKGs. If repeat cardiac enzymes and serial EKGs remain unremarkable will pursue a.m. cardiac stress testing. FLP in AM. Magnesium requested. If patient with ongoing symptoms with PVCs with noted bigeminy may need to consider adding regimen. ASA, NG, morphine. 2. Hypertension: Continue home regimen including lisinopril although may need adjustments given significantly elevated BP upon presentation, currently improved, will add regimen if necessary, PRN hydralazine. 3. Hypothyroidism: Continue home synthroid regimen, TSH and free T4 pending given complaints of palpitations. 4. Chronic Kidney Disease Stage III: Admission BUN/Cr 18/1.05, baseline renal function 0.9-1.1, baseline creatinine clearance appears in the 40s, repeat BMP in AM. 5. DVT prophylaxis: SCDs, Lovenox. OBSV E&M: 43533 Initial observation care L3
--- NOTE | 2020-11-03 15:39 | NURSING ---
PCU OBS CP WHITE
[2020-11-03] MEDS: Nitroglycerin Oint 1 INCH PACKET TD (15:48)
--- NOTE | 2020-11-03 16:06 | PCS.PANDOC ---
PANDEMIC DOCUMENTATION INITIATED: Date: 11/03/2020 Time: 0527
--- NOTE | 2020-11-03 16:06 | PCS.PANDOC ---
PANDEMIC DOCUMENTATION INITIATED: Date: 11/03/20 Time: 9692
--- NOTE | 2020-11-03 16:57 | EKG12_ITS ---
Test Reason : DYSRHYTHMIA Blood Pressure : / mmHG Vent. Rate : 065 BPM Atrial Rate : 065 BPM P-R Int : 146 ms QRS Dur : 084 ms QT Int : 414 ms P-R-T Axes : 043 066 052 degrees QTc Int : 430 ms Normal sinus rhythm Normal ECG When compared with ECG of 03-NOV-2020 17:17, MANUAL COMPARISON REQUIRED, DATA IS UNCONFIRMED Confirmed by MATILDA MEEKS, MASSIEL ([id number]), continuity editor ALLIE REDD ([id number]) on 11/08/2020 11:17:43 AM Referred By: ISRAEL Confirmed By:JESUS GREY MD
[2020-11-03] MEDS: 0.9% Normal Saline 1,000 ML 100 ML IV (17:00)
[2020-11-03 17:31] LABS: Magnesium 2.2 mg/dL (1.6-2.6)
[2020-11-03 18:43] LABS: T4 Free Direct 1.29 ng/dL (0.76-1.46)
[2020-11-04] VITALS (7 sets, daily range): BP systolic 125–151; BP diastolic 65–79; PULSE 65–82; RESP 16–18; TEMP 36.4–36.6; O2SAT 96–99
[2020-11-04] MEDS: 0.9% Normal Saline 1,000 ML 100 ML IV (00:30)
--- NOTE | 2020-11-04 00:58 | EKG12_ITS ---
Test Reason : ADMISSION CP EKG Blood Pressure : / mmHG Vent. Rate : 056 BPM Atrial Rate : 056 BPM P-R Int : 144 ms QRS Dur : 076 ms QT Int : 412 ms P-R-T Axes : 051 063 040 degrees QTc Int : 397 ms Sinus bradycardia Otherwise normal ECG When compared with ECG of 03-NOV-2020 14:32, MANUAL COMPARISON REQUIRED, DATA IS UNCONFIRMED Confirmed by MATILDA MEEKS, MASSIEL ([id number]), video effects editor ALLIE REDD ([id number]) on 11/08/2020 11:18:29 AM Referred By: LOKESH Confirmed By:JESUS GREY MD
[2020-11-04] MEDS: Levothyroxine 75 MCG Tablet PO (05:32)
[2020-11-04] MEDS: Aspirin E.C. 81 MG Tablet PO (05:32)
[2020-11-04] MEDS: Lisinopril 40 MG Tablet PO (05:32)
[2020-11-04 06:52] LABS: Absolute Lymphocyte Count 1.71 X10^3/uL (0.83-4.51); Absolute Neutrophil Count 3.2 X10^3/uL (2.0-7.7); Basophil# 0.02 X10^3/uL; Basophil% 0.4 % (0-1); Eosinophil# 0.08 X10^3/uL; Eosinophils% 1.4 % (0-5); Hematocrit 36.4 % (37-47); Lymphocyte # 1.71 X10^3/ul (4.0); Lymphocyte % 30.9 % (19-41); Mean Corpuscular Hgb 32.8 pg (27.0-32.0); Mean Corpuscular Volume 99.5 fL (81-99); Mean Platelet Vol. 10.5 fl (6.2-12.0); Monocyte# 0.51 X10^3/uL; Monocyte% 9.2 % (0-10); NRBC Flagged by Analyzer 0 % (0-5); Neutrophil % 57.7 % (47-70); Platelet Count 195 K/mm3 (150-450); RBC Distribution Width CV 12.1 % (11.6-14.6); RBC Distribution Width SD 44.4 fl (35.1-43.9); Red Blood Count 3.66 M/mm3 (4.2-5.4); White Blood Count 5.5 K/mm3 (4.4-11.0)
[2020-11-04 07:19] LABS: ALB/GLOB Ratio 1.2 RATIO (0.9-2.4); AST(SGOT) 16 U/L (15-37); Alanine Aminotransfer ALT/SGPT 23 U/L (13-56); Albumin, Serum 3.7 g/dL (3.2-5.0); Alkaline Phosphatase 69 U/L (45-117); Anion Gap 3 (5-15); BUN 19 mg/dL (7-18); BUN/Creat Ratio 18.6 RATIO (10-20); Calcium,Total 8.6 mg/dL (8.5-10.1); Chloride 110 mmol/L (98-107); Cholesterol 210 mg/dL (200); Creatinine, Serum 1.02 mg/dL (0.55-1.02); EST Glomerular Filtration Rate 57 mL/min (>60); Est Glom Filt Rate - Afr Amer 69 mL/min (>60); Estimated Creatinine Clearance 44.95 ml/min; Globulin 3.1 g/dL (2.2-4.2); Glucose 92 mg/dL (74-106); High Density Lipoprotein 45 mg/dL; Potassium 4.4 mmol/L (3.5-5.1); Protein, Total 6.8 g/dL (6.4-8.2); Sodium Level 141 mmol/L (136-145); Triglycerides 170 mg/dL; Very Low Density Lipoprotein 34 mg/dL (5-40)
[2020-11-04] MEDS: Famotidine 20 MG Tablet PO (10:30)
--- NOTE | 2020-11-04 11:07 | STRESSREP ---
Stress Test Report Date: 11/04/2020 Procedure: Pharmacologic stress nuclear imaging study Indications: Chest pain Consent: Per the patient Procedure: The patient underwent pharmacologic (Regadenoson) evaluation with a peak heart rate of 112 beats per minute (74%predicted maximal heart rate) and a peak blood pressure of 168/60 mmHg. The baseline ECG demonstrated normal sinus rhythm, occasional PVCs. EKG during lexiscan infusion revealed no significant ischemic changes. EKG post infusion revealed no significant ischemic changes Patient had rate related right bundle branch block that resolved in the recovery period. [There was no complaint of chest discomfort during pharmacologic infusion or recovery]. The examination was discontinued secondary to completion of protocol. Impression: 1. Lexiscan stress test test is negative for Lexiscan infusion induced EKG changes of ischemia. 2. Lexiscan stress test test is negative for Lexiscan infusion induced chest pain. 3. Results of the nuclear portion of the test is as below Myocardial perfusion imaging study: Technique: The patient was injected with [] millicuries of technetium 99m Cardiolite and subsequently rest SPECT Cardiolite nuclear imaging was obtained in the horizontal long, vertical long, and short axis views. The patient underwent pharmacologic (Regadenoson) evaluation. Please see above for details. The patient was injected with [] millicuries of technetium 99m Cardiolite and subsequently stress SPECT Cardiolite nuclear imaging was obtained in the horizontal long, vertical long, and short axis views. A gated Cardiolite study at peak stress was obtained. Interpretation: Rest and stress SPECT Cardiolite nuclear imaging status post realignment, normalization, and attenuation correction demonstrate overall normal myocardial radioisotope uptake. Gated images reveal no significant regional wall motion abnormalities. The reported LVEF is greater than 70%. Impression: 1. There is no evidence of significant ischemia or infarction. 2. Estimated ejection fraction is greater than 70%. This note was generated with [employer] software. It may contain incorrect words, spelling, and punctuation that were not noted in checking the note before signing.
--- NOTE | 2020-11-04 11:23 | DCINST_ITS ---
- Discharge Diagnoses Current Active Problems: Current Active and Chronic Problems Chest pain (Acute) Chronic kidney disease (CKD), stage III (moderate) (Chronic) HTN (hypertension) (Chronic) Hypothyroidism (Chronic) You will use the following diet at home:: No restrictions Discharge Activity: Return to Normal Activity Call your doctor if you observe: Shortness of breath, Dizziness, Fainting spells, Chest pain Allergies/Adverse Reactions: Allergies No Known Allergies Allergy (Verified 11/03/20 14:28) Medications to take at Discharge Calcium Carbonate/Vitamin D3 [Calcium 500 mg Chewable Tablet] 2 tab PO DAILY 11/03/20 Cholecalciferol (Vitamin D3) [Vitamin D3] 5,000 unit PO DAILY 11/03/20 Glucosamine/D3/Boswellia Lynda [Osteo Bi-Flex Tablet] 1 tab PO BID 11/03/20 Levothyroxine Sodium 75 mcg PO DAILY 11/03/20 Lisinopril 40 mg PO DAILY 11/03/20 Multivitamin 1 ea PO DAILY 11/03/20 Primary Care Physician: Chicho Ojeda MD [Primary Care Provider] - Please follow up with your Primary Care Physician in: 1 Week Test Results: Test results from this visit will be discussed in further detail at your follow- up appointment, if applicable. Proposed Discharge Date: 11/04/20
--- NOTE | 2020-11-04 12:04 | PCM.DC.SUM ---
<Linda Lovell EMAIL CAMPAIGN SPECIALIST - Last Filed: 11/04/20 12:17> Discharge Date and Diagnosis - Problem List Patient Problems: Active and Suspected Problems Chest pain (Acute) Date of Admission: 11/03/20 Date of Discharge: 11/04/20 - Primary Discharge Diagnosis Acute Problems: Active Problems 1. Chest pressure, palpitations-ACS ruled out. 2. Hypertension 3. Hypothyroidism 4. Chronic kidney disease stage III - Secondary Discharge Diagnosis Chronic Problems: Chronic Problems Chronic kidney disease (CKD), stage III (moderate) (Chronic) HTN (hypertension) (Chronic) Hypothyroidism (Chronic) Hospital Course and Treatment Imaging Results: Diagnostic Data Chest X-Ray 11/03/20 14:50 IMPRESSION: Normal x-ray examination of the chest. Electronically Signed: Lj Eber, at 15:11 EST , Service support , Operations: None Procedures: Stress test Summary of Care Provided: The patient is a 70 year old F admitted 11/03/2020 due to chest pressure and palpitations. 1. Chest pressure, palpitations-ACS ruled out. Troponin negative. EKG without ST-T changes. Patient underwent nuclear stress test which was negative for ischemia, estimated ejection fraction 70%. Occasional PVCs on telemetry. Patient initiated on daily famotidine to see if this improves epigastric pressure/fullness. Patient reports ongoing palpitations. Discussed with patient if symptoms are persistent or problematic, she may discuss adding low-dose beta-hiram with her primary care provider. Follow-up with PCP in 1 week. 2. Hypertension-blood pressure 207/94 on admission. Repeat blood pressures significantly improved. Continue home lisinopril regimen. Discussed with patient that her heart pounding and symptoms at home may have been related to elevated blood pressure. Recommended checking blood pressure twice daily or with symptoms. Report findings to PCP. 3. Hypothyroidism-continue home Synthroid regimen. TSH/free T4 within normal limits. 4. Chronic kidney disease stage III-at baseline. Patient seen and examined prior to discharge. Physical assessment as noted below. Patient is stable for discharge with follow up recommendations as noted above. This patient was seen by GORDON Soto under the supervision of Dr. Upton. Patient Problems: Active and Suspected Problems Chest pain (Acute) - Physical Exam Vitals/I&O's: Vital Signs Temp Pulse Resp BP Pulse Ox 97.6 F L 82 16 151/79 H 99 11/04/20 11:43 11/04/20 11:43 11/04/20 11:43 11/04/20 11:43 11/04/20 11:43 Oxygen Delivery Method Room Air Weight: 163 lb 5.8 oz Body Mass Index (BMI) 28.0 Intake and Output for Last 24 Hours 11/02/20 11/03/20 11/04/20 23:59 23:59 23:59 Intake Total 682.5 / 682.5 2136.66 / 2136.66 Balance 682.5 / 682.5 2136.66 / 213.66 General: Alert, Oriented x3, Cooperative HEENT: Atraumatic, PERRLA, EOMI, Normocephalic Neck: Supple, No JVD, Negative Carotid Bruits Lungs: Clear to auscultation, Normal air movement Cardiovascular: Regular rate, No murmurs Abdomen: Bowel Sounds Present, Soft, Non Tender Extremities: No clubbing, No cyanosis, No edema, Capillary Refill Less than 3 Seconds Skin: No rashes, No breakdown Musculoskeletal: No Tenderness to Palpation of Joints or Extremities Neurological: Cranial nerves II-XII grossly intact, Neuro grossly intact Psych/Mental Status: Normal Affect, Appropriate Laboratory Results 11/03/20 14:31: WBC 7.5, RBC 3.94 L, Hgb 12.9, Hct 39.1, MCV 99.2 H, MCH 32.7 H, MCHC 33.0, RDW Std Deviation 44.2 H, RDW Coeff of Ivelisse 12.2, Plt Count 239, MPV 11.0, Immature Gran % (Auto) 0.400, Neut % (Auto) 63.3, Lymph % (Auto) 26.3, [place] % (Auto) 8.5, Eos % (Auto) 1.1, Baso % (Auto) 0.4, Absolute Neuts (auto) 4.7, Absolute Lymphs (auto) 1.97, Nucleated RBC % 0 11/03/20 14:31: Sodium 137, Potassium 4.2, Chloride 104, Carbon Dioxide 30.0, Anion Gap 3 L, BUN 18, Creatinine 1.05 H, Estim Creat Clear Calc 43.67, Est GFR (MDRD) Af Amer 67, Est GFR (MDRD) Non-Af 55 L, BUN/Creatinine Ratio 17.1, Glucose 93, Calcium 10.0, Troponin I < 0.015 11/03/20 14:31: Magnesium 2.2 11/03/20 17:53: TSH 0.40, Free T4 1.29 11/03/20 17:53: Troponin I < 0.015 11/03/20 20:10: Troponin I < 0.015 11/04/20 06:40: WBC 5.5, RBC 3.66 L, Hgb 12.0, Hct 36.4 L, MCV 99.5 H, MCH 32.8 H, MCHC 33.0, RDW Std Deviation 44.4 H, RDW Coeff of Ivelisse 12.1, Plt Count 195, MPV 10.5, Immature Gran % (Auto) 0.400, Neut % (Auto) 57.7, Lymph % (Auto) 30.9, Durham % (Auto) 9.2, Eos % (Auto) 1.4, Baso % (Auto) 0.4, Absolute Neuts (auto) 3.2, Absolute Lymphs (auto) 1.71, Nucleated RBC % 0 11/04/20 06:40: Sodium 141, Potassium 4.4, Chloride 110 H, Carbon Dioxide 28.0, Anion Gap 3 L, BUN 19 H, Creatinine 1.02, Estim Creat Clear Calc 44.95, Est GFR (MDRD) Af Amer 69, Est GFR (MDRD) Non-Af 57 L, BUN/Creatinine Ratio 18.6, Glucose 92, Calcium 8.6, Total Bilirubin 0.40, AST 16, ALT 23, Alkaline Phosphatase 69, Total Protein 6.8, Albumin 3.7, Globulin 3.1, Albumin/Globulin Ratio 1.2, Triglycerides 170, Cholesterol 210 H, LDL Cholesterol 131 H, VLDL Cholesterol 34, HDL Cholesterol 45 Current Medications Acetaminophen (Acetaminophen 325 Mg Tablet) 650 mg PO Q6H PRN PRN PRN Reason: Pain Score 1-10/Temp > 100.7 F Albuterol Sulfate (Albuterol 2.5 Mg/3 Ml Vial.Neb.) 2.5 mg INHALATION Q2H PRN PRN PRN Reason: Dyspnea, wheezing Aspirin (Aspirin E.C. 81 Mg Tablet) 81 mg PO DAILY@0800 [facility] Last Admin: 11/04/20 05:32 Dose: 81 mg Documented by: Enoxaparin Sodium (Enoxaparin 40 Mg/0.4 Ml Syringe) 40 mg SC DAILY [facility] Famotidine (Famotidine 20 Mg Tablet) 20 mg PO DAILY [facility] Last Admin: 11/04/20 10:30 Dose: 20 mg Documented by: Guaifenesin (Guaifenesin 10 Ml Udc (200mg/10ml)) 20 ml PO Q4H PRN PRN PRN Reason: COUGH Hydralazine HCl (Hydralazine 20 Mg/Ml Vial) 10 mg IV Q4H PRN PRN PRN Reason: SBP > 160 Sodium Chloride () 1,000 mls @ 100 mls/hr IV .Q10H [facility] Last Infusion: 11/04/20 11:45 Dose: Infused Documented by: Levothyroxine Sodium (Levothyroxine 75 Mcg Tablet) 75 mcg PO DAILY@0600 [facility] Last Admin: 11/04/20 05:32 Dose: 75 mcg Documented by: Lisinopril (Lisinopril 40 Mg Tablet) 40 mg PO DAILY [facility] Last Admin: 11/04/20 05:32 Dose: 40 mg Documented by: Magnesium Hydroxide (Magnesium Hydroxide 30 Ml Udc) 30 ml PO DAILY PRN PRN PRN Reason: Constipation Morphine Sulfate (Morphine 2 Mg/Ml Syringe) 2 mg IV Q3H PRN PRN PRN Reason: Pain Score 6-10 Nitroglycerin (Nitroglycerin Sl (Ed/Img/Cath) 0.4 Mg Tablet) 0.4 mg SUBLINGUAL Q5M PRN PRN Reason: Chest pain Last Admin: 11/03/20 14:53 Dose: 0.4 mg Documented by: Nitroglycerin (Nitroglycerin (Inpatient Use) 0.4 Mg Tab.Subl) 0.4 mg SUBLINGUAL Q5M PRN PRN Reason: CARDIAC/CHEST PAIN Ondansetron HCl (Ondansetron 4 Mg/2 Ml Vial) 4 mg IV Q8H PRN PRN PRN Reason: NAUSEA/VOMITING Oxycodone HCl (Oxycodone 5 Mg Tablet) 5 mg PO Q4H PRN PRN PRN Reason: Pain Score 4-5 Prochlorperazine Edisylate (Prochlorperazine 10 Mg/2 Ml Vial) 5 mg IV Q4H PRN PRN PRN Reason: Breakthrough Nausea/Vomiting Psyllium Hydrophilic Mucilloid (Psyllium 1 Packet) 1 packet PO DAILY PRN PRN PRN Reason: Constipation Senna/Docusate Sodium (Senna/Docusate Sodium 1 Tablet) 2 tablet PO BID PRN PRN PRN Reason: Constipation Sodium Chloride (0.9% Saline Lock 10 Ml Syringe) 10 - 40 ml IV UD PRN PRN Reason: SALINE FLUSH Temazepam (Temazepam 15 Mg Capsule) 15 mg PO QHS PRN PRN PRN Reason: INSOMNIA Throat Lozenges (Benzocaine/Menthol 1 Lozenge) 1 lozenge MUCOUS MEM Q2H PRN PRN PRN Reason: SORE THROAT Discharge Diet: Low fat/ Low Cholesterol Discharge Activity: Return to Normal Activity Call your doctor if you observe: Shortness of breath, Dizziness, Fainting spells, Chest pain Home Medications: Medications to take at Discharge Calcium Carbonate/Vitamin D3 [Calcium 500 mg Chewable Tablet] 2 tab PO DAILY 11/03/20 Cholecalciferol (Vitamin D3) [Vitamin D3] 5,000 unit PO DAILY 11/03/20 Glucosamine/D3/Boswellia Lynda [Osteo Bi-Flex Tablet] 1 tab PO BID 11/03/20 Levothyroxine Sodium 75 mcg PO DAILY 11/03/20 Lisinopril 40 mg PO DAILY 11/03/20 Multivitamin 1 ea PO DAILY 11/03/20 Famotidine [Pepcid] 40 mg PO DAILY #30 tab 11/04/20 Following Prescriptions Were Given to Patient: Famotidine [Pepcid] 40 mg PO DAILY #30 tab Transmission Status: Received by [facility]/pharmacy #[id number] Primary Care Physician: Chicho Ojeda MD [Primary Care Provider] - Please follow up with your Primary Care Physician in: 1 Week Disposition: Home Minutes spent on discharge:: 35 Patient Condition:: Stable Medical Necessity - Tobacco Use Smoking Status: Never smoker Tobacco Use: Non-smoker Meaningful Use Info Meaningful Use Diagnoses (Choose all that apply): None applicable <Len Upton - Last Filed: 11/04/20 13:59> Discharge Date and Diagnosis - Primary Discharge Diagnosis Acute Problems: Active Problems Chest pain (Acute) - Secondary Discharge Diagnosis Chronic Problems: Chronic Problems Chronic kidney disease (CKD), stage III (moderate) (Chronic) HTN (hypertension) (Chronic) Hypothyroidism (Chronic) Hospital Course and Treatment Imaging Results: 11/04/20 05:55 Nuclear Stress Test - Chemical [NM] AM (NON MEDS) Summary of Care Provided: This patient was seen in conjunction with GORDON Soto . I have independently interviewed and examined the patient and reviewed pertinent historical, laboratory, and other data. Please refer to GORDON Soto note for details of this patient's presentation, findings, and recommendations. I have reviewed GORDON Soto note and concur with documented findings. In brief, patient is a 70-year-old lady who presented with chest pain. Placed on a monitored bed NV ruled out with serial cardiac enzymes subsequently underwent a nuclear stress test which was negative for stress-induced ischemia Hospital course: As documented above - Physical Exam Vitals/I&O's: Vital Signs Temp Pulse Resp BP Pulse Ox 97.6 F L 82 16 151/79 H 99 11/04/20 11:43 11/04/20 11:43 11/04/20 11:43 11/04/20 11:43 11/04/20 11:43 Oxygen Delivery Method Room Air Weight: 74.1 kg Body Mass Index (BMI) 28.0 Intake and Output for Last 24 Hours 11/02/20 11/03/20 11/04/20 23:59 23:59 23:59 Intake Total 682.5 / 682.5 2136.66 / 2136.66 Balance 682.5 / 682.5 2136.66 / 2136.66 Laboratory Results 11/03/20 14:31: WBC 7.5, RBC 3.94 L, Hgb 12.9, Hct 39.1, MCV 99.2 H, MCH 32.7 H, MCHC 33.0, RDW Std Deviation 44.2 H, RDW Coeff of Ivelisse 12.2, Plt Count 239, MPV 11.0, Immature Gran % (Auto) 0.400, Neut % (Auto) 63.3, Lymph % (Auto) 26.3, Durham % (Auto) 8.5, Eos % (Auto) 1.1, Baso % (Auto) 0.4, Absolute Neuts (auto) 4.7, Absolute Lymphs (auto) 1.97, Nucleated RBC % 0 11/03/20 14:31: Sodium 137, Potassium 4.2, Chloride 104, Carbon Dioxide 30.0, Anion Gap 3 L, BUN 18, Creatinine 1.05 H, Estim Creat Clear Calc 43.67, Est GFR (MDRD) Af Amer 67, Est GFR (MDRD) Non-Af 55 L, BUN/Creatinine Ratio 17.1, Glucose 93, Calcium 10.0, Troponin I < 0.015 11/03/20 14:31: Magnesium 2.2 11/03/20 17:53: TSH 0.40, Free T4 1.29 11/03/20 17:53: Troponin I < 0.015 11/03/20 20:10: Troponin I < 0.015 11/04/20 06:40: WBC 5.5, RBC 3.66 L, Hgb 12.0, Hct 36.4 L, MCV 99.5 H, MCH 32.8 H, MCHC 33.0, RDW Std Deviation 44.4 H, RDW Coeff of Ivelisse 12.1, Plt Count 195, MPV 10.5, Immature Gran % (Auto) 0.400, Neut % (Auto) 57.7, Lymph % (Auto) 30.9, Durham % (Auto) 9.2, Eos % (Auto) 1.4, Baso % (Auto) 0.4, Absolute Neuts (auto) 3.2, Absolute Lymphs (auto) 1.71, Nucleated RBC % 0 11/04/20 06:40: Sodium 141, Potassium 4.4, Chloride 110 H, Carbon Dioxide 28.0, Anion Gap 3 L, BUN 19 H, Creatinine 1.02, Estim Creat Clear Calc 44.95, Est GFR (MDRD) Af Amer 69, Est GFR (MDRD) Non-Af 57 L, BUN/Creatinine Ratio 18.6, Glucose 92, Calcium 8.6, Total Bilirubin 0.40, AST 16, ALT 23, Alkaline Phosphatase 69, Total Protein 6.8, Albumin 3.7, Globulin 3.1, Albumin/Globulin Ratio 1.2, Triglycerides 170, Cholesterol 210 H, LDL Cholesterol 131 H, VLDL Cholesterol 34, HDL Cholesterol 45 OBSV E&M: [id number] Observation care discharge
--- NOTE | 2020-11-04 12:07 | PHA.DC.MR ---
Pharmacy Service has performed discharge medication reconciliation for this patient. The patient's discharge medication list was reviewed for discrepancies and discrepancies were resolved. Home Medications Calcium Carbonate/Vitamin D3 [Calcium 500 mg Chewable Tablet] 2 tab PO DAILY 11/03/20 Cholecalciferol (Vitamin D3) [Vitamin D3] 5,000 unit PO DAILY 11/03/20 Glucosamine/D3/Boswellia Lynda [Osteo Bi-Flex Tablet] 1 tab PO BID 11/03/20 Levothyroxine Sodium 75 mcg PO DAILY 11/03/20 Lisinopril 40 mg PO DAILY 11/03/20 Multivitamin 1 ea PO DAILY 11/03/20 Famotidine [Pepcid] 40 mg PO DAILY #30 tab 11/04/20
== END 2020-11-04 11:23 | disposition home or self-care (01) ==
LOC: ED 15:06 → PCU 17:01
PROVIDERS: Admitting Provider Family Medicine; Emergency Provider Emergency Medicine; PCP Family Medicine; Visit Provider Internal Medicine
DX: R07.89 Other chest pain (principal); R00.2 Palpitations; I12.9 Hypertensive chronic kidney disease with stage 1 through stage 4 chronic kidney disease, or unspecified chronic kidney disease; N18.30 Chronic kidney disease, stage 3 unspecified; E03.9 Hypothyroidism, unspecified; Z79.899 Other long term (current) drug therapy; I49.1 Atrial premature depolarization
CPT/HCPCS: 36415; 71045; 78452; 80048; 80053; 80061; 83735; 84439; 84443; 84484; 85025; 93005; 93017; 96360; 96361; 99218; 99251; 99285; 99406; A9500; J7030; A4216; G0378; G0463; J2785

== ENCOUNTER → 2020-12-08 09:41 | Outpatient (CLI) | payer MEDICARE, OTHER, SELFPAY ==
[2020-11-03 16:05] VITALS: BMI 28.0
[2020-12-08 13:07] LABS: Vitamin D,25 Hydroxy 77.8 ng/mL
[2020-12-08 13:21] LABS: Anion Gap 6 (5-15); BUN 17 mg/dL (7-18); BUN/Creat Ratio 15.9 RATIO (10-20); Chloride 104 mmol/L (98-107); Creatinine, Serum 1.07 mg/dL (0.55-1.02); EST Glomerular Filtration Rate 54 mL/min (>60); Est Glom Filt Rate - Afr Amer 65 mL/min (>60); Glucose 107 mg/dL (74-106); Potassium 4.4 mmol/L (3.5-5.1); Sodium Level 137 mmol/L (136-145); T4 Free Direct 1.16 ng/dL (0.76-1.46)
== END ==
PROVIDERS: PCP Family Medicine; Referring Provider Family Medicine; Visit Provider Family Medicine
DX: E03.9 Hypothyroidism, unspecified (principal); I10 Essential (primary) hypertension; E55.9 Vitamin D deficiency, unspecified
CPT/HCPCS: 36415; 80048; 82306; 84439; 84443

== ENCOUNTER 2020-12-28 13:16 | Outpatient (RCR) | payer MEDICARE, OTHER, SELFPAY ==
[2020-11-03 16:05] VITALS: BMI 28.0
[2020-12-28] MEDS: COVID-19 VACC, MRNA(PFIZER)/PF 30 MCG/0.3 ML SYRINGE IM (12:11)
[2021-01-18] MEDS: COVID-19 VACC, MRNA(PFIZER)/PF 30 MCG/0.3 ML SYRINGE IM (11:49)
== END 2021-03-29 23:59 ==
LOC: IMMUN 13:16
PROVIDERS: PCP Family Medicine; Visit Provider Family Medicine
DX: Z23 Encounter for immunization (principal)
CPT/HCPCS: 0001A; 0002A; 91300

== ENCOUNTER → 2021-05-24 08:28 | Outpatient (CLI) | payer MEDICARE, OTHER, SELFPAY ==
[2020-11-03 16:05] VITALS: BMI 28.0
--- NOTE | 2021-05-24 08:33 | BD_ITS ---
STUDY: DUAL ENERGY X-RAY ABSORPTIOMETRY / DXA REASON FOR EXAM: Female, 71 years old. [id number]. The patient is postmenopausal. TECHNIQUE: Bone Mineral Density (BMD) measurements of lumbar spine and bilateral hips were obtained. COMPARISON: Comparison is made with prior examination 05/20/2019. FINDINGS: Lumbar Spine (L1-L4): g/cm2 (0.864) / T-score (-1.7) / Z-score (0.5) Findings are suggestive of osteopenia with a moderate fracture risk. Left Femur Total: g/cm2 (0.838) / T-score (-0.9) / Z-score (0.7) Left Femoral Neck: g/cm2 (0.686) / T-score (-1.5) / Z-score (0.3) Right Femur Total: g/cm2 (0.851) / T-score (-0.7) / Z-score (0.8) Right Femoral Neck: g/cm2 (0.703) / T-score (-1.3) / Z-score (0.5) BD/Dexa Bone Density Study IMPRESSION: The patient is considered osteopenic as outlined below according to World [place] Organization (WHO) criteria with a moderate fracture risk. There has been worsening of bone density since the previous examination. Reference Information: The T-score is the number of standard deviations above or below the standard which is normal for young adults at their peak bone mineral density. The World Health Organization (WHO) interprets the T-scores as follows: Above -1 Normal bone density Between -1 and -2.5 Osteopenia Equal to / or below -2.5 Osteoporosis As a practical clinical guideline, osteopenia may be graded as follows: Mild -1 through -1.5 Moderate -1.6 through -2.0 Severe -2.1 through -2.4 The Z-score is the number of standard deviations above or below age-matched controls. A Z-score of less than -1.5 would be considered abnormal. References: 1. NIH Osteoporosis and Related Bone Diseases www osteo.org 2. International Society for Clinical Densitometry www iscd.org 3. National Osteoporosis Foundation www nof.org Electronically Signed: Lj Velázquez MD at 15:36 EDT , Service support ,
== END ==
PROVIDERS: PCP Family Medicine; Referring Provider Family Medicine; Visit Provider Family Medicine
DX: M85.80 Other specified disorders of bone density and structure, unspecified site (principal); Z78.0 Asymptomatic menopausal state
CPT/HCPCS: 77080

== ENCOUNTER → 2021-06-28 10:11 | Outpatient (CLI) | payer MEDICARE, OTHER, SELFPAY ==
[2020-11-03 16:05] VITALS: BMI 28.0
--- NOTE | 2021-06-28 10:13 | BI_ITS ---
MAMMOGRAPHY - BILATERAL SCREENING REASON FOR EXAM: Female, 71 years old. Routine annual screening examination. PERTINENT HISTORY: Aunt with breast cancer. Remote left stereotactic breast biopsy. TECHNIQUE: Digital bilateral breast mickie (3D mammographic acquisition) in the CC and MLO projections. 2-D mediolateral oblique (MLO) and craniocaudad (CC) views of both breasts were obtained. CAD: Full Field Digital Mammography with Computer Added Detection was performed. COMPARISON: Comparison is made with prior study dated 06/04/2020 and 06/03/2019. FINDINGS: Breast Composition: The breasts are heterogeneously dense, which may obscure small masses. There are no dominant masses or suspicious calcifications. Stable benign-appearing bilateral axillary lymph nodes. No other significant abnormalities are identified. There has been no significant change since the prior study. BI/SCRN MAMM (CAD)W/MICKIE BILAT IMPRESSION: Stable bilateral screening mammogram. Yearly follow-up mammogram recommended. (A) ASSESSMENT CATEGORY: BIRADS Category 2: Benign. A letter regarding these results will be sent to the patient by the facility within 30 days. Approximately 10% of breast cancers are not detected by mammography. A normal mammogram should not delay biopsy of a clinically suspicious abnormality. [id number] Electronically Signed: Lj Velázquez MD at 11:14 EDT , Service support ,
== END ==
PROVIDERS: PCP Family Medicine; Referring Provider Student in an Organized Health Care Education/Training Program; Visit Provider Student in an Organized Health Care Education/Training Program
DX: Z12.31 Encounter for screening mammogram for malignant neoplasm of breast (principal)
CPT/HCPCS: 77063; 77067

== ENCOUNTER 2021-12-08 08:25 | Outpatient (CLI) | payer MEDICARE, OTHER, SELFPAY ==
[2021-12-08 10:31] LABS: Vitamin D,25 Hydroxy 74.9 ng/mL
[2021-12-08 10:39] LABS: Anion Gap 4 (5-15); BUN 17 mg/dL (7-18); BUN/Creat Ratio 16.7 RATIO (10-20); Calcium,Total 9.5 mg/dL (8.5-10.1); Chloride 107 mmol/L (98-107); Cholesterol 183 mg/dL (200); Creatinine, Serum 1.02 mg/dL (0.55-1.02); EST Glomerular Filtration Rate 57 mL/min (>60); Est Glom Filt Rate - Afr Amer 69 mL/min (>60); Glucose 114 mg/dL (74-106); High Density Lipoprotein 45 mg/dL; Potassium 4.3 mmol/L (3.5-5.1); Sodium Level 140 mmol/L (136-145); Thyroid Stim Hormone (TSH) 1.47 uIU/mL (0.358-3.74); Triglycerides 229 mg/dL; Very Low Density Lipoprotein 46 mg/dL (5-40)
== END 2021-12-08 23:59 | disposition home or self-care (01) ==
LOC: MTLAB 08:27
PROVIDERS: PCP Family Medicine; Referring Provider Family Medicine; Visit Provider Family Medicine
DX: I10 Essential (primary) hypertension (principal); E03.9 Hypothyroidism, unspecified; E55.9 Vitamin D deficiency, unspecified
CPT/HCPCS: 36415; 80048; 80061; 82306; 84443

== ENCOUNTER → 2022-03-17 | Outpatient (CLI) | payer MEDICARE, OTHER, SELFPAY ==
[2022-03-24 08:25] LABS: HPV APTIMA, High Risk Negative (Negative)
== END | disposition home or self-care (01) ==
LOC: LABSPEC 12:05
PROVIDERS: PCP Family Medicine; Visit Provider Student in an Organized Health Care Education/Training Program
DX: Z12.4 Encounter for screening for malignant neoplasm of cervix (principal)
CPT/HCPCS: 87624; 88175; G0145

== ENCOUNTER → 2022-07-20 | Outpatient (CLI) | payer MEDICARE, OTHER, SELFPAY ==
--- NOTE | 2022-07-20 08:27 | BI_ITS ---
MAMMOGRAPHY - BILATERAL SCREENING REASON FOR EXAM: Female, 72 years old. Routine annual screening examination. PERTINENT HISTORY: Aunt with breast cancer. Remote left stereotactic breast biopsy. TECHNIQUE: Digital bilateral breast mickie (3D mammographic acquisition) in the CC and MLO projections. 2-D mediolateral oblique (MLO) and craniocaudad (CC) views of both breasts were obtained. CAD: Full Field Digital Mammography with Computer Added Detection was performed. COMPARISON: Comparison is made with prior study of 06/28/2021. FINDINGS: Breast Composition: The breasts are heterogeneously dense, which may obscure small masses. There are no dominant masses or suspicious calcifications. Stable benign-appearing bilateral axillary lymph nodes. A tissue clip marker is seen in the upper lateral aspect of the left breast. No other significant abnormalities are identified. There has been no significant change since the prior study. BI/SCRN MAMM (CAD)W/MICKIE BILAT IMPRESSION: Stable bilateral screening mammogram. Yearly follow-up mammogram recommended. (A) ASSESSMENT CATEGORY: BIRADS Category 2: Benign. A letter regarding these results will be sent to the patient by the facility within 30 days. Approximately 10% of breast cancers are not detected by mammography. A normal mammogram should not delay biopsy of a clinically suspicious abnormality. [id number] Electronically Signed: Lj Velázquez MD at 12:32 EDT ,
== END | disposition home or self-care (01) ==
LOC: OPBI 08:26
PROVIDERS: PCP Family Medicine; Referring Provider Student in an Organized Health Care Education/Training Program; Visit Provider Student in an Organized Health Care Education/Training Program
DX: Z12.31 Encounter for screening mammogram for malignant neoplasm of breast (principal); Z80.3 Family history of malignant neoplasm of breast
CPT/HCPCS: 77063; 77067

== ENCOUNTER → 2022-10-03 | Outpatient (CLI) | payer MEDICARE, OTHER, SELFPAY ==
[2022-10-03 10:07] LABS: Erythrocyte Sedimentation Rate 12 mm/hr (0-30)
[2022-10-03 10:08] LABS: Absolute Lymphocyte Count 1.32 X10^3/uL (0.83-4.51); Absolute Neutrophil Count 4.1 X10^3/uL (2.0-7.7); Basophil# 0.02 X10^3/uL; Basophil% 0.3 % (0-1); Eosinophil# 0.08 X10^3/uL; Eosinophils% 1.3 % (0-5); Hematocrit 37.7 % (37-47); Hemoglobin 12.2 g/dL (12.0-15.0); Lymphocyte # 1.32 X10^3/ul (0.83-4.51); Mean Corp Hgb Conc 32.4 g/dL (32-36); Mean Corpuscular Hgb 32.6 pg (27.0-32.0); Mean Corpuscular Volume 100.8 fL (81-99); Monocyte# 0.49 X10^3/uL; Monocyte% 8.2 % (0-10); NRBC Flagged by Analyzer 0 % (0-5); Neutrophil # 4.08 X10^3/uL (2.7-7.7); Platelet Count 185 K/mm3 (150-450); RBC Distribution Width CV 12.3 % (11.6-14.6); RBC Distribution Width SD 45.7 fl (35.1-43.9); Red Blood Count 3.74 M/mm3 (4.2-5.4)
[2022-10-03 14:19] LABS: ALB/GLOB Ratio 1.3 RATIO (0.9-2.4); AST(SGOT) 18 U/L (15-37); Alanine Aminotransfer ALT/SGPT 26 U/L (13-56); Albumin, Serum 3.8 g/dL (3.2-5.0); Alkaline Phosphatase 76 U/L (45-117); Anion Gap 9 (5-15); BUN 16 mg/dL (7-18); BUN/Creat Ratio 15.5 RATIO (10-20); Chloride 104 mmol/L (98-107); Creatinine, Serum 1.03 mg/dL (0.55-1.02); EST Glomerular Filtration Rate 56 mL/min (>60); Est Glom Filt Rate - Afr Amer 68 mL/min (>60); Globulin 2.9 g/dL (2.2-4.2); Glucose 110 mg/dL (74-106); Potassium 4.5 mmol/L (3.5-5.1); Protein, Total 6.7 g/dL (6.4-8.2); Sodium Level 139 mmol/L (136-145); T4 Free Direct 1.21 ng/dL (0.76-1.46); Thyroid Stim Hormone (TSH) 1.31 uIU/mL (0.358-3.74)
== END | disposition home or self-care (01) ==
LOC: MFPLAB 09:28
PROVIDERS: PCP Family Medicine; Visit Provider Family Medicine
DX: R06.09 Other forms of dyspnea (principal); E03.9 Hypothyroidism, unspecified
CPT/HCPCS: 36415; 80053; 84439; 84443; 85025; 85652

== ENCOUNTER → 2023-06-27 | Outpatient (CLI) | payer MEDICARE, OTHER, SELFPAY ==
[2023-06-27 12:47] LABS: Vitamin D,25 Hydroxy 96.8 ng/mL
[2023-06-27 13:17] LABS: ALB/GLOB Ratio 1.2 RATIO (0.9-2.4); AST(SGOT) 15 U/L (15-37); Alanine Aminotransfer ALT/SGPT 27 U/L (13-56); Albumin, Serum 3.9 g/dL (3.2-5.0); Alkaline Phosphatase 74 U/L (45-117); Anion Gap 4 (5-15); BUN 15 mg/dL (7-18); BUN/Creat Ratio 14.2 RATIO (10-20); Calcium,Total 9.4 mg/dL (8.5-10.1); Chloride 107 mmol/L (98-107); Creatinine, Serum 1.06 mg/dL (0.55-1.02); EST Glomerular Filtration Rate 54 mL/min (>60); Est Glom Filt Rate - Afr Amer 66 mL/min (>60); Globulin 3.3 g/dL (2.2-4.2); Glucose 115 mg/dL (74-106); Potassium 4.7 mmol/L (3.5-5.1); Protein, Total 7.2 g/dL (6.4-8.2); Sodium Level 140 mmol/L (136-145); T4 Free Direct 1.11 ng/dL (0.76-1.46)
== END | disposition home or self-care (01) ==
LOC: MTLAB 09:51
PROVIDERS: PCP Family Medicine; Referring Provider Family Medicine; Visit Provider Family Medicine
DX: I10 Essential (primary) hypertension (principal); E55.9 Vitamin D deficiency, unspecified; E03.9 Hypothyroidism, unspecified
CPT/HCPCS: 36415; 80053; 82306; 84439; 84443

== ENCOUNTER → 2023-07-24 | Outpatient (CLI) | payer MEDICARE, OTHER, SELFPAY ==
--- NOTE | 2023-07-24 09:43 | BI_ITS ---
MAMMOGRAPHY - BILATERAL SCREENING REASON FOR EXAM: Female, 73 years old. Routine annual screening examination. PERTINENT HISTORY: Aunt with breast cancer. Remote left stereotactic breast biopsy. TECHNIQUE: Digital bilateral breast mickie (3D mammographic acquisition) in the CC and MLO projections. 2-D mediolateral oblique (MLO) and craniocaudad (CC) views of both breasts were obtained. CAD: Full Field Digital Mammography with Computer Added Detection was performed. COMPARISON: Comparison is made with prior study dated July 20, 2022 and June 28, 2021. FINDINGS: Breast Composition: The breasts are heterogeneously dense, which may obscure small masses. There are no dominant masses or suspicious calcifications. A tissue clip marker is once again seen in the upper lateral aspect of the left breast. Stable small benign appearing bilateral axillary lymph nodes. No other significant abnormalities are identified. There has been no significant change since the prior study. BI/SCRN MAMM (CAD)W/MICKIE BILAT IMPRESSION: Stable bilateral screening mammogram. Yearly follow-up mammogram recommended. (A) ASSESSMENT CATEGORY: BIRADS Category 2: Benign. A letter regarding these results will be sent to the patient by the facility within 30 days. Approximately 10% of breast cancers are not detected by mammography. A normal mammogram should not delay biopsy of a clinically suspicious abnormality. [id number] Electronically Signed: Lj Velázquez MD at 11:00 EDT ,
--- NOTE | 2023-07-24 09:50 | BD_ITS ---
STUDY: DUAL ENERGY X-RAY ABSORPTIOMETRY / DXA REASON FOR EXAM: Female, 73 years old. [id number] TECHNIQUE: Bone Mineral Density (BMD) measurements of lumbar spine and bilateral hips were obtained. COMPARISON: Comparison is made with prior study dated May 24, 2021. FINDINGS: Lumbar Spine (L1-L4): g/cm2 (0.882) / T-score (-1.5) / Z-score (0.7) Findings are suggestive of osteopenia with a low fracture risk. Left Femur Total: g/cm2 (0.870) / T-score (-0.6) / Z-score (1.1) Left Femoral Neck: g/cm2 (0.671) / T-score (-1.6) / Z-score (0.3) Right Femur Total: g/cm2 (0.898) / T-score (-0.4) / Z-score (1.3) Right Femoral Neck: g/cm2 (0.715) / T-score (-1.2) / Z-score (0.7) The T-Scores on the most recent prior examination were: Lumbar Spine (L1-L4): There has been improvement of bone density since the previous examination. Left Femur Total: which represents an improvement of 3.8%. Right Femur Total: which represents an improvement of 5.5%. BD/Dexa Bone Density Study IMPRESSION: The patient is considered osteopenic as outlined below according to World [place] Organization (WHO) criteria with a moderate fracture risk. There has been worsening of bone density since the previous examination. Reference Information: The T-score is the number of standard deviations above or below the standard which is normal for young adults at their peak bone mineral density. The World Health Organization (WHO) interprets the T-scores as follows: Above -1 Normal bone density Between -1 and -2.5 Osteopenia Equal to / or below -2.5 Osteoporosis As a practical clinical guideline, osteopenia may be graded as follows: Mild -1 through -1.5 Moderate -1.6 through -2.0 Severe -2.1 through -2.4 The Z-score is the number of standard deviations above or below age-matched controls. A Z-score of less than -1.5 would be considered abnormal. References: 1. NIH Osteoporosis and Related Bone Diseases www osteo.org 2. International Society for Clinical Densitometry www iscd.org 3. National Osteoporosis Foundation www nof.org Electronically Signed: Lj Velázquez MD at 14:47 EDT ,
== END | disposition home or self-care (01) ==
PROVIDERS: PCP Family Medicine; Referring Provider Family Medicine; Visit Provider Family Medicine
DX: Z12.31 Encounter for screening mammogram for malignant neoplasm of breast (principal); Z78.0 Asymptomatic menopausal state
CPT/HCPCS: 77063; 77067; 77080

== ENCOUNTER 2023-07-31 09:00 | Outpatient (RCR) | payer MEDICARE, OTHER, SELFPAY ==
--- NOTE | 2023-07-03 10:30 | HP.PTEVAL_ITS ---
Patient's Visit Information Visit Information Visit Information: LUIS JOHNSON is a 73 year old F referred to Physical Therapy by Dr. Chicho Ojeda MD with a diagnosis of L hip pain, IT band and hip flexor tightness after fall. Date of Evaluation: 07/03/23 Physical Therapist: Monster Mitchell DPT Visit Plan Frequency: 1-2x /Week Duration: 4 Weeks Plan: Start with IT band, HS, hip flexor stretching. Add in hip ER, IR, glute med and glute max, core strengthening. Progress from mat to CKC exercises as tolerated. Progress HEP per visit as patient will be coming in weekly. HEP 07/03- IT band stretch, HS stretch, clamshell, banded bridging. Subjective Subjective: Pt. is here today for her initial evaluation with diagnosis of L hip pain with IT band and hip flexor tightness after having a fall 4 month prior. Pt. reports falling fwrd and rotating on her L side in her garden. Pt. [place] and had a lot more trouble with walking and stairs. Everything has improved, but not fully. She still has some pain and her L leg feels weak like I can not push my self up. Pt. is sleeping okay with some mild soreness with lying on her L side. Pt. did not have any xrays at this point in time. She is able to WBing adequately, but does report increased pain/stiffness with initial standing. Pt. is hopeful to reduce symptoms in order to get back to all travelling and recreational activities without limitations. Pain L hip: Pain Intensity (Out of 10): 3 Pain Intensity Range: 1 and 7 Comment: Pt. is lateral hip, but does radiate to groin region Objective Objective: POSTURE: Pt. has decent posture in stance. Pt. has slight guarded. Pt. does have slight anterior pelvic tilt and initial soreness getting to amrita tral pelvic positioning. PALPATION: pt. has increased soreness with palpation of L greater trochanter and B PSIS. Pt. had mild tenderness along IT band on L side, not much pain with palpation of L piriformis. NEURO: pt. has normal sensation in BLEs, except at L lateral leg. This has been present since a previous back injury 20+ years prior. Normal DTR of BLEs. Pt. is able to rise on heels and toes without issues. ROM: Lumbar spine: normal ROM throughout, mild HS tightness with fwrd flexion, and tightness at L lateral leg with R side bend. L hip: pt. has normal hip ROM without increase in symptoms. Pt. does have marked tigthness with L IT band, HS and hip flexor. Mild increase in soreness with muscle length testing, but not severe. MMT: Pt. has good Bilateral distal LE strength, no pain with testing. R hip: flexion 5-/5, abd 4+/5, ER 4+/5, IR 4+/5. LLE: flexion 4+/5 mild increase NW, abd 4/5 mild increase NW, ER 4/5 mild increase NW, IR 4+/5 NE. Core strength- poor+. GAIT: Pt. ambulates with guarded posture. She lacks B hip extension with gait. Pt. reports pain/stiffness with initial standing (B hips) that does improve with increased walking. STAIRS: P. has marked increase in L lateral hip pain during L loading phase of ascending and less so descending. No pain with R loaded phases. Special Tests L Hip Scour: Negative L Hip JARVIS - Intraarticular Pathology: Positive L Hip FADDIR - Labrum: Negative L Hip Trendelenberg - Glut Medius: Positive L Hip Meng - IT Band: Positive Balance/Special Test Scores Lower Extremity Functional Score: 43 Goals Goal 1:: LTG: Pt. to be I with HEP for LE strengthening, core strengthening and IT band/hip flexor stretching. Goal Time Frame: 4-6 Weeks Goal 2:: STG: pt. to be able to walk without increase in symptoms. Goal Time Frame: 2-4 Weeks Goal 3:: LTG: pt. to have equal and normal IT band/HS and hip flexor length. Goal Time Frame: 4-6 Weeks Goal 4:: LTG: pt. to have increased L hip strength to 5/5 throughout. Goal Time Frame: 4-6 Weeks Goal 5:: LTG: Pt. to negotiate steps with out increase in symptoms with presence of good functional LLE strength. Goal Time Frame: 4-6 Weeks Goal 6:: STG: Pt. to report decreased L hip stiffness with initial standing after prolonged sitting. Goal Time Frame: 2-4 Weeks Rehabilitation Potential Physical Therapy Diagnosis: Pt. has signs and symptoms consistent with L hip pain and IT band/HS tightness after sustaining a fall 4 months prior. Pt. has good joint mobility, but increased tightness of L IT band, L HS, and L hip flexor. She also has some marked weakness of her L hip musculature as well. She would benefit from PT to address the above limitations progressing back to all recreational activities without increase in symptoms. Rehabilitation Potential: Excellent Anticipated Interventions Patient/Client Instruction: Educate patient on: Condition, Plan of Care, Risk Factors and Benefits of Fitness Program For the Purpose of:: To facilitate caregiver knowledge, To improve self management, To prevent re-injury, To improve ability to perform tasks related to life management and To improve tolerance to ADL's Therapeutic Exercise to Include: Strength training, Power training, Flexibilty training, Gait and locomotor training, Passive ROM, Active ROM and Dynamic Lumbar Stabilization For the Purpose of:: To decrease pain, To increase ROM, To improve nutrient delivery to tissue, To increase oxygenation perfusion, To improve muscle performance and motor function, To improve gait and locomotor functions, To improve health of tissue, To decrease soft tissue restriction and To increase flexibility/ROM Text: Thank you for the opportunity to evaluate your patient. For Medicare and Medicare HMO plans, please review the plan of care and approve it. It will need to be FAXED BACK to us at [phone] for Medicare purposes. For Medicare only, by signing this I certify the plan of care. Please let me know if there are questions or concerns regarding this plan of care. Physician Signature: Date:
--- NOTE | 2023-07-31 09:29 | HP.PTDCSUM ---
Discharge Summary D/C summary: It has been my pleasure to treat LUIS JOHNSON referred by Dr. Chicho Ojeda MD, with the diagnosis of L hip pain, IT band and hip flexor tightness after fall for a total of 5 visit(s). Discharge Date: 07/31/23 Please see the following information for a summary of their discharge status. Subjective Subjective: Pt. reports overall doing much better. Pt. reports 1/10 pain, occasional ache. Mostly when she initial getting up from sitting. Pain L hip: Pain Intensity (Out of 10): 1 Overall Improvement % Improvement: 90 Objective Objective/Function: ROM: PT. has normal HS and IT band length. Pt. does report more of a stretch on the L side than R side. Normal with HS length. MMT: Pt. has symmetrical strength between BLEs. R hip: flexion 28.1#, abd 22.8#. L hip: flexion 27.2#, abd 23.3#. GAIT: pt. has fairly normal gait pattern. No major gait issues. STAIRS: Pt. has normal stair pattern, slight increase in difficulty with L stance phase. Pt. reports no pain with descending. uses 1 HR to complete. Goals Goal 1:: LTG: Pt. to be I with HEP for LE strengthening, core strengthening and IT band/hip flexor stretching. Goal Progress: Goal Met Goal 2:: STG: pt. to be able to walk without increase in symptoms. Goal 3:: LTG: pt. to have equal and normal IT band/HS and hip flexor length. Goal Progress: Goal Met Goal 4:: LTG: pt. to have increased L hip strength to 5/5 throughout. Goal Progress: Goal Met Goal 5:: LTG: Pt. to negotiate steps with out increase in symptoms with presence of good functional LLE strength. Goal Progress: Goal Met Goal 6:: STG: Pt. to report decreased L hip stiffness with initial standing after prolonged sitting. Goal Progress: Progressing Plan Plan: Pt. to be DC from PT at this point in time. D/C Information Discharge Comments: Pt. was treated with hip flexor and IT band stretching. Progressing to strengthening as well. Pt. is overall doing 90% better overall and is back to doign her activities without limitations. Pt. will be DC from PT at this point in time. d/c sentence: If there are questions or concerns regarding this patient's physical therapy, please feel free to call me at [phone]. Thank you for the referral of this patient. Sincerely, Monster Mitchell, DPT Balance/Gait/Functional tests Balance/Special Test Scores Lower Extremity Functional Score: 60 Improvement % Improvement: 90
== END 2023-07-31 19:00 | disposition home or self-care (01) ==
LOC: PT 09:00
PROVIDERS: PCP Family Medicine; Referring Provider Family Medicine; Visit Provider Family Medicine
DX: M25.552 Pain in left hip (principal)
CPT/HCPCS: 97110; 97161; 97164

== ENCOUNTER → 2024-07-01 | Outpatient (CLI) | payer MEDICARE, OTHER, SELFPAY ==
[2024-07-01 10:48] LABS: Vitamin D,25 Hydroxy 97.4 ng/mL
[2024-07-01 11:12] LABS: ALB/GLOB Ratio 1.1 RATIO (0.9-2.4); AST(SGOT) 12 U/L (15-37); Alanine Aminotransfer ALT/SGPT 23 U/L (13-56); Albumin, Serum 3.6 g/dL (3.2-5.0); Alkaline Phosphatase 77 U/L (45-117); Anion Gap 4 (5-15); BUN 18 mg/dL (7-18); BUN/Creat Ratio 15.1 RATIO (10-20); Calcium,Total 9.7 mg/dL (8.5-10.1); Chloride 110 mmol/L (98-107); Cholesterol 170 mg/dL (200); Creatinine, Serum 1.19 mg/dL (0.55-1.02); EST Glomerular Filtration Rate 47 mL/min (>60); Est Glom Filt Rate - Afr Amer 57 mL/min (>60); Globulin 3.2 g/dL (2.2-4.2); Glucose 115 mg/dL (74-106); High Density Lipoprotein 38 mg/dL; Potassium 4.4 mmol/L (3.5-5.1); Protein, Total 6.8 g/dL (6.4-8.2); Sodium Level 140 mmol/L (136-145); T4 Free Direct 1.13 ng/dL (0.76-1.46); Triglycerides 226 mg/dL; Very Low Density Lipoprotein 45 mg/dL (5-40)
== END | disposition home or self-care (01) ==
LOC: MFPLAB 08:54
PROVIDERS: PCP Family Medicine; Visit Provider Family Medicine
DX: I10 Essential (primary) hypertension (principal); E78.5 Hyperlipidemia, unspecified; E03.9 Hypothyroidism, unspecified; M85.80 Other specified disorders of bone density and structure, unspecified site
CPT/HCPCS: 36415; 80053; 80061; 82306; 84439; 84443

== ENCOUNTER → 2024-08-05 | Outpatient (CLI) | payer MEDICARE, OTHER, SELFPAY ==
--- NOTE | 2024-08-05 10:51 | BI_ITS ---
MAMMOGRAPHY - BILATERAL SCREENING 3-D TOMOSYNTHESIS REASON FOR EXAM: Female, 74 years old. breast cancer screening PERTINENT HISTORY: No significant family history. TECHNIQUE: 2-D mammograms and 3-D Tomosynthesis of the breast (s) were performed. CAD was performed. COMPARISON: 07/24/2023 FINDINGS: The breast composition is heterogeneously dense that can obscure small breast masses. Scattered benign calcifications are seen. No dense spiculated masses or suspicious microcalcifications are identified. No architectural distortion is identified. There is no skin thickening or retraction. There has been no significant change since the prior study. BI/SCRN MAMM (CAD)W/MICKIE BILAT IMPRESSION: No mammographic signs of malignancy. Routine yearly mammograms recommended. ASSESSMENT CATEGORY: BIRADS Category 1: Negative. A letter regarding these results will be sent to the patient by the facility within 30 days. FOLLOW UP RECOMMENDATION: Yearly follow up mammogram recommended. (A) Approximately 10% of breast cancers are not detected by mammography. A normal mammogram should not delay biopsy of a clinically suspicious abnormality. Electronically Signed: Grayson Trujillo MD at 13:23 EDT ,
== END | disposition home or self-care (01) ==
LOC: OPBI 10:51
PROVIDERS: PCP Family Medicine; Referring Provider Family Medicine; Visit Provider Family Medicine
DX: Z12.31 Encounter for screening mammogram for malignant neoplasm of breast (principal)
CPT/HCPCS: 77063; 77067

== ENCOUNTER 2025-07-28 09:57 | Outpatient (CLI) | payer MEDICARE, OTHER, SELFPAY ==
[2025-07-28 12:54] LABS: AST(SGOT) 17 U/L (<=31); Alanine Aminotransfer ALT/SGPT 17 U/L (<=34); Albumin, Serum 4.3 g/dL (3.4-4.8); Alkaline Phosphatase 66 U/L (35-104); Anion Gap 11 (5-15); BUN 12 mg/dL (4-19); BUN/Creat Ratio 12.8 RATIO (10-20); Calcium,Total 9.6 mg/dL (7.6-11.0); Carbon Dioxide 24.5 mmol/L (21.0-32.0); Chloride 105 mmol/L (98-108); Globulin 2.4 g/dL (2.2-4.2); Glucose 108 mg/dL (70-99); Potassium 4.5 mmol/L (3.3-5.1); Vitamin D,25 Hydroxy 94.9 ng/mL (30-100)
[2025-07-28 14:16] LABS: Cholesterol 187 mg/dL (<=200); Low Density Lipoprotein Calc. 99 mg/dL; Triglycerides 237 mg/dL; Very Low Density Lipoprotein 47 mg/dL (5-40); cholesterol:hdl ratio screen 4.59
== END 2025-07-28 23:59 | disposition home or self-care (01) ==
LOC: MFPLAB 10:02
PROVIDERS: PCP Family Medicine; Visit Provider Family Medicine
DX: E03.9 Hypothyroidism, unspecified (principal); E55.9 Vitamin D deficiency, unspecified; I10 Essential (primary) hypertension
CPT/HCPCS: 36415; 80053; 80061; 82306; 84439; 84443

== ENCOUNTER → 2025-08-24 | Outpatient (CLI) | payer MEDICARE, OTHER, SELFPAY ==
--- NOTE | 2025-08-24 14:49 | BI_ITS ---
EXAM: BI/SCRN MAMM (CAD)W/MICKIE BILAT
== END | disposition home or self-care (01) ==
LOC: OPBI 14:48
PROVIDERS: PCP Family Medicine; Referring Provider Obstetrics & Gynecology; Visit Provider Obstetrics & Gynecology
DX: Z12.31 Encounter for screening mammogram for malignant neoplasm of breast (principal)
CPT/HCPCS: 77063; 77067